=== PATIENT | female | born 1950 | race Caucasian/White ===

== ENCOUNTER 2022-10-04 01:25 | Day surgery (SDC) | payer MEDICARE, SELFPAY ==
--- NOTE | 2022-09-30 14:34 | PC.NURSE ---
Report to the Outpatient Waiting Room, entrance under the green pavilion located off [facility], at time _1330 on date _10/04/22 . Planned Procedure Time: __1530 . Time changes happen often and if your time is changed the preop area will call you the afternoon before. - You and your visitor will be asked to self-screen and do not enter if you have any COVID symptoms. - Only one visitor is requested with a max of two and NO children visitors are allowed at this time. - The patient visitor may be requested to leave or wait in car when not with patient due to distancing restrictions. - A mask is optional within the hospital. Patients may have clear liquids (water, carbonated beverages, clear teas, apple juice) until 3 hours prior to surgery with a maximum of 20 ounces. - No food from midnight until time of surgery - Infants may have breast milk until 4 hours before surgery, infant formula 6 hours prior to surgery. - Children will be allowed to drink immediately following surgery. If applicable, please bring a bottle or sippy cup to assist with drinking. Juice, water, soda, and popsicles are readily available. For infants on formula, please bring formula the day of surgery. Pacifiers are allowed. Take the following medications with a SIP of water the morning of surgery: __LYRICA,CYMBALTA,WELLBUTRIN,HYDROCODONE IF NEEDED Medications to discontinue per physician Date to take last dose Please no make-up, nail pakistani, hairspray, perfume, deodorant, or body powder the day of surgery. No jewelry (including any body piercings) or valuables the day of surgery, leave them at home. Please take a shower or bath the night before, or the morning of, surgery with an antibacterial soap. Wear comfortable, loose fitting clothing. Children are encouraged to wear pajamas. - Jewelry must be removed prior to entering the operating room. Rings and piercings that are not removed may be cut off. - The hospital will not accept responsibility for valuables. - Please leave all valuables, including medications, at home the day of surgery. If you are going home after surgery, a licensed taxi cab driver must drive you home. - NO public transportation without another adult if you receive anesthesia. - We recommend that an adult stay with you for 24 hours following discharge. - We also recommend that you do not drive, make important decision, drink alcoholic beverages, or take any drugs that were not prescribed by your health care provider for at least 24 hours after your discharge time. Follow any additional instructions given to you from your surgeon. If you or anyone in your household have experienced Covid symptoms in the past week, please notify your surgeon or the nurse liaison at the phone number below for possible testing. Telephone instructions given to ___PATIENT and asked if any additional questions and then verbalized understanding. Patient advised to call surgeon office or pre surgery nurse liaison [phone] if any additional questions.
[2022-09-30 14:45] VITALS: BMI 29.0
--- NOTE | 2022-10-04 09:36 | WPDHPUPDATE1 ---
History and Physical Update Update Date/Time: 10/04/22 09:36 History and Physical has been reviewed, including an updated exam of the patient. There are NO changes in the patient's condition. Risks, benefits, and alternatives have been discussed and questions answered. Patient agrees to proceed with procedure.
--- NOTE | 2022-10-04 09:36 | PM.HPGS ---
History of Present Illness History of Present Illness Consent: Risks, benefits, and alternatives have been discussed and questions answered. Patient agrees to proceed with procedure. Chief complaint: post menopausal bleeding Narrative: Shayy Stearns is a 72 year old female who underwent menopause in 1999. The patient had recently moved to the area from [facility] and was a new patient to me in August of 2022. The patient reports having irregular bleeding for the past several years. Most recently the patient had 4 days of bleeding in June that are heavy, 2 days of bleeding in early July and 2 days of bleeding in late July. It was recommended to proceed with D&C hysteroscopy. Risks of infection, bleeding, perforation, and possible pathology are reviewed. Patient voiced understanding and agrees to proceed. Review of Systems Review of Systems: not repeated day of surgery; patient states no changes in status PMFSH Past Medical History Medical History (Updated 10/04/22 @ 09:41 by Tawana Méndez MD) Anxiety Depression History of migraine HTN (hypertension) Overactive bladder Sacral nerve stimulator present Surgical History Surgical History (Updated 10/04/22 @ 09:39 by Tawana Méndez MD) H/O neck surgery History of appendectomy Hx laparoscopic cholecystectomy Previous back surgery Social History Social History Smoking status: Never smoker Living arrangements: alone Spiritual care concerns: No Meds Home Medications and Allergies Home Medications Medication Instructions Recorded Confirmed Type bupropion HCl 100 mg tablet 100 mg PO QAM PAIN 09/30/22 09/30/22 History duloxetine 60 mg capsule,delayed 60 mg PO QNOON PAIN 09/30/22 09/30/22 History release (Cymbalta) hydrocodone 7.5 mg-acetaminophen 1 tablet PO Q6H PRN Pain 09/30/22 09/30/22 History 325 mg tablet lisinopril 20 mg tablet 20 mg PO DAILY 09/30/22 09/30/22 History oxybutynin chloride 10 mg 10 mg PO DAILY 09/30/22 09/30/22 History tablet,extended release 24 hr pregabalin 100 mg capsule (Lyrica) 100 mg PO TID 09/30/22 09/30/22 History sumatriptan succinate 100 mg 100 mg PO PRN PRN Migraine Headache 09/30/22 09/30/22 History tablet (Imitrex) Allergies Allergy/AdvReac Type Severity Reaction Status Date / Time sulfamethoxazole Allergy Hives Verified 09/30/22 14:23 trimethoprim Allergy Hives Verified 09/30/22 14:23 DARVOCET Allergy Nausea and Uncoded 09/30/22 14:23 Vomiting Exam Const: General: alert and obese ( BMI of 31) Orientation/consciousness: patient oriented x3 Resp: Effort & Inspection: normal respiratory effort Auscultation: clear to auscultation bilaterally Cardio: Rate: regular rate Rhythm: regular rhythm GI: GI Palp: Yes Soft to palpation, No Tenderness to palpation present (GI) and No Palpable mass present : External Female Exam: normal external appearance Speculum Exam - Vagina: normal appearance of the vagina and normal vaginal discharge Speculum Exam - Cervix: normal appearance of the cervix Bimanual exam- vagina & uterus: uterine size normal and consistency normal Bimanual Exam- Adnexa, other: normal adnexae and No adnexal tenderness Neuro: General: patient oriented x3 Assessment and Plan Assessment and plan (1) Abnormal uterine bleeding: Code(s): N93.9 - Abnormal uterine and vaginal bleeding, unspecified Status: Acute Assessment and Plan: patient with postmenopausal bleeding plan to proceed with D&C hysteroscopy
[2022-10-04] MEDS: ACETAMINOPHEN 500 MG TABLET 1000 MG PO (11:09)
[2022-10-04] MEDS: LACTATED RINGERS 1,000 ML 30 ML IV CONT (11:09)
--- NOTE | 2022-10-04 11:15 | P.PNAN_ITS ---
Anes - Initial Pre Proc Eval Procedure: Operation Date: 10/04/22 15:30 Proposed Procedures p Hysteroscopy, Dilation and Curettage - Tawana Méndez MD Date/Time: 10/04/22 11:15 Surgeon: Tawana Méndez MD Pre Op Diagnosis: post menopausal bleeding Patient Data Age: 72 Gender: F Height: 1.68 m Weight: 85.8 kg Allergies Allergy/AdvReac Type Severity Reaction Status Date / Time sulfamethoxazole Allergy Hives Verified 09/30/22 14:23 trimethoprim Allergy Hives Verified 09/30/22 14:23 acetaminophen AdvReac Nausea and Verified 10/04/22 10:10 [From Darvocet-N 100] Vomiting propoxyphene AdvReac Nausea and Verified 10/04/22 10:10 [From Darvocet-N 100] Vomiting Home Medications Medication Instructions Recorded Confirmed Type bupropion HCl 100 mg tablet 100 mg PO QAM PAIN 09/30/22 09/30/22 History duloxetine 60 mg capsule,delayed 60 mg PO QNOON PAIN 09/30/22 09/30/22 History release (Cymbalta) hydrocodone 7.5 mg-acetaminophen 1 tablet PO Q6H PRN Pain 09/30/22 09/30/22 History 325 mg tablet lisinopril 20 mg tablet 20 mg PO DAILY 09/30/22 09/30/22 History oxybutynin chloride 10 mg 10 mg PO DAILY 09/30/22 09/30/22 History tablet,extended release 24 hr pregabalin 100 mg capsule (Lyrica) 100 mg PO TID 09/30/22 09/30/22 History sumatriptan succinate 100 mg 100 mg PO PRN PRN Migraine Headache 09/30/22 09/30/22 History tablet (Imitrex) Patient hx anesthesia problems: none Family hx anesthesia problems: none Results Review: All pre-operative results and documents have been reviewed as part of the pre-operative evaluation. [facility] Past Medical History Medical History Anxiety Depression History of migraine HTN (hypertension) Overactive bladder Sacral nerve stimulator present Surgical History Surgical History H/O neck surgery History of appendectomy Hx laparoscopic cholecystectomy Previous back surgery Social History Social History Smoking status: Never smoker Living arrangements: alone Spiritual care concerns: No Anes - Eval Final PreProcedure Day of Procedure 10/04/22 11:15 Patient weight: obese Heart: regular rate and rhythm Lungs: clear to auscultation Airway: Mallampati scale class II Neurological: alert and oriented Last oral intake: >/= 8 hours ASA classification: III Emergent: no Anesthetic plan: proceed Anesthesia type and monitoring: general GIVS and standard monitoring Results Review: All pre-operative results and documents have been reviewed as part of the pre- operative evaluation. Informed Consent: The patient's anesthetic plan and its attendant risks and benefits were discussed with the patient/family/POA. Questions were solicited and answers provided to the satisfaction of the patient/family/POA.
[2022-10-04] MEDS: LIDOCAINE HCL 1% PF 30 ML VIAL 10 ML INFILTRATE (11:41)
--- NOTE | 2022-10-04 11:53 | P.OP_ITS ---
Procedure Note - Detailed Date of Procedure 10/04/22 Pre-op Diagnosis Abnormal uterine bleeding post menopausal bleeding Post-op Diagnosis Same Procedure Performed D&C hysteroscopy Surgeon Tawana Méndez MD Anesthesia MAC and Local Findings the uterus sounds to 8cm; the cavity was filled with large irregular tissue Description of Procedure The patient is taken to the operating room and placed under anesthesia in the dorsal lithotomy position. She was prepped and draped in the usual sterile fashion. [place] speculum was placed in the vagina and the cervix grasped on the anterior lip with a tenaculum. The cervix is injected in each quadrant with 1% lidocaine. The uterus is sounded to 8cm and noted to be retroverted. The Aveta hysteroscope was placed with the above-stated findings. The intermediate blade is placed through the hysteroscope and under direct visualization the irregular tissue is all excised. The hysteroscope was removed and the sharp curette used to curette the endometrium until a good uterine cry was noted in all areas. All instruments are removed. Sponge, needle, and instrument counts are correct per the OR staff. The patient was awakened from anesthesia and taken to recovery in stable condition. Estimated Blood Loss 5 Drains No Packing No Pathology Yes ( Endometrial shavings and curettings) Complications No immediate complications Condition Stable Disposition PACU
[2022-10-04 11:54] VITALS: BP 107/67; PULSE 71; RESP 19; O2SAT 91
[2022-10-04 12:25] VITALS: BP 111/67; PULSE 63; RESP 16; O2SAT 97
[2022-10-04 12:55] VITALS: BP 122/72; PULSE 61; RESP 18
== END 2022-10-04 13:00 | disposition home or self-care (01) ==
PROVIDERS: Visit Provider Obstetrics & Gynecology Gynecology
PROC: 0U5B8ZZ Destruction of Endometrium, Via Natural or Artificial Opening Endoscopic (ICD-10-PCS; CPT 58563; principal; 2022-10-04 15:30)
DX: N95.0 Postmenopausal bleeding (principal); I10 Essential (primary) hypertension; N32.81 Overactive bladder; F41.9 Anxiety disorder, unspecified; F32.A Depression, unspecified; E66.9 Obesity, unspecified; Z68.30 Body mass index [BMI] 30.0-30.9, adult
CPT/HCPCS: 58558; 88305; A9270; J2704; J3010; J7120

== ENCOUNTER 2022-11-30 12:55 | Outpatient (CLI) | payer MEDICARE, SELFPAY | END 2022-11-30 12:56 | disposition home or self-care (01) | LOC: ANHAUDIO 12:56 | PROVIDERS: PCP Family Medicine; Visit Provider Physician Assistant | DX: H90.3 Sensorineural hearing loss, bilateral (principal) | CPT/HCPCS: 92557; 92567 ==

== ENCOUNTER 2022-12-01 08:15 | Outpatient (CLI) | payer MEDICARE, SELFPAY ==
[2022-12-01 09:03] LABS: Hemoglobin A1C 5.8 % (<5.7)
[2022-12-01 09:04] LABS: Alanine Aminotransferase 22 U/L (6-35); Albumin Level 4.3 g/dL (3.5-5.1); Alkaline Phosphatase 73 U/L (38-126); Anion Gap 6 mmol/L (8-16); Aspartate Amino Transferase 28 U/L (14-36); Bilirubin,Total 0.5 mg/dL (0.2-1.3); Blood Urea Nitrogen 10 mg/dL (7-17); Calcium 9.4 mg/dL (8.4-10.2); Carbon Dioxide 27 mmol/L (22-30); Chloride 105 mmol/L (98-107); Estimated Glomerular Filt Rate > 60; Glucose 97 mg/dL (65-110); Potassium 4.8 mmol/L (3.4-5.0); Sodium 138 mmol/L (137-145)
[2022-12-03 10:34] LABS: Cholesterol 171 mg/dL (0-200); HDL Direct 53 mg/dL; Triglycerides 143 mg/dL (<150)
[2022-12-03 10:45] LABS: LDL Cholesterol Direct 83 mg/dL
== END 2022-12-01 08:16 | disposition home or self-care (01) ==
PROVIDERS: PCP Family Medicine; Visit Provider Physician Assistant
DX: Z00.00 Encounter for general adult medical examination without abnormal findings (principal); Z13.1 Encounter for screening for diabetes mellitus; R73.09 Other abnormal glucose; E78.5 Hyperlipidemia, unspecified
CPT/HCPCS: 36415; 80053; 80061; 83036

== ENCOUNTER → 2023-02-17 11:47 | Outpatient (CLI) | payer MEDICARE, SELFPAY ==
--- NOTE | ~2023-02-17 | XR_ITS ---
Thoracic spine: Clinical Indication: Pain AP and lateral views were performed. No fracture is seen. There is normal alignment of the vertebrae. The intervertebral disc spaces appe ar normal. Spinal cord stimulators present, with 2 leads at the mid thoracic spine, and a third lead extending to the cervical spine. Paravertebral soft tissues appear normal. Impression: Spinal cord stimulator leads of the thoracic and cervical spine levels, as noted above. Reviewed, dictated and finalized at location M. Impression: Spinal cord stimulator leads of the thoracic and cervical spine levels, as note d above.
--- NOTE | ~2023-02-17 | XR_ITS ---
Lumbosacral Spine: AP and lateral views Clinical History: Pain, spinal cord stimulator leads Findings: There is 22 degrees levoscoliosis of the lumbar spine. There is moderate facet arthropathy throughout the lumbar spine. There are minimal degenerative disc changes. No fracture or subluxation evident. Spinal cord stimulator device present, please extending superiorly beyond the [id number]. Impression: 22 degrees levoscoliosis with mild degenerative changes otherwise. Spinal cord stimulators, with leads extending off the superior edge of the image. Reviewed, dictated and finalized at location M. Impression: 22 degrees levoscoliosis with mild degenerative changes otherwise. Spinal cord stimulators, with leads extending off the superior edge of the imag e.
== END ==
PROVIDERS: PCP Family Medicine
DX: M51.36 Other intervertebral disc degeneration, lumbar region (principal); M51.34 Other intervertebral disc degeneration, thoracic region; M41.9 Scoliosis, unspecified
CPT/HCPCS: 72070; 72100

== ENCOUNTER → 2023-03-24 11:44 | Outpatient (CLI) | payer MEDICARE, SELFPAY ==
--- NOTE | ~2023-03-24 | MM_ITS ---
EXAMINATION: MM screening carole BI w corwin HISTORY: Screening mammogram TECHNIQUE: Craniocaudal and mediolateral oblique 3-D tomosynthesis images were obtained and synthetic 2-D images were generated. CAD analysis was submitted and interpreted. COMPARISON: No prior mammogram is available for comparison at this institution. BREAST PARENCHYMAL COMPOSITION: There are scattered areas of fibroglandular density. FINDINGS: Scattered bilateral benign calcifications. There is no evidence of suspicious mass, calcifi cation, or architectural distortion to suggest malignancy in either breast. There has been no suspici ous interval change. IMPRESSION: 1. No mammographic evidence of malignancy. 2. Recommend routine screening mammography in one year. BI-RADS Category 2: Benign finding(s). Reviewed, dictated and finalized at location A.
== END ==
PROVIDERS: PCP Family Medicine; Visit Provider Obstetrics & Gynecology Gynecology
DX: Z12.31 Encounter for screening mammogram for malignant neoplasm of breast (principal)
CPT/HCPCS: 77063; 77067

== ENCOUNTER → 2023-04-08 10:25 | Outpatient (CLI) | payer MEDICARE, SELFPAY ==
--- NOTE | ~2023-04-08 | DEXA_ITS ---
Bone Density Report Name: KECIA YOUNG Age: 72 Sex: Female Ethnicity: White Date of : 1950 Indication: postmenopausal; screening for osteoporosis; prior fracture; Referring Provider: LILIA PALOMINO Study: Bone densitometry was performed. Exam Date: April 08, 2023 Accession number: [id number] Bone Density: Region BMD T-score Z-score Classification AP Spine (L1, L3, L4) 1.114 0.6 2.7 Normal Femoral Neck (Left) 0.663 -1.7 0.2 Osteopenia Total Hip (Left) 0.868 -0.6 0.9 Normal Femoral Neck (Right) 0.676 -1.6 0.3 Osteopenia Total Hip (Right) 0.911 -0.3 1.3 Normal Total Hip Mean 0.890 -0.5 1.1 Normal World Health Organization criteria for BMD impression classify patients as: Normal (T-score at or above -1.0), Osteopenia (T-score between -1.0 and -2.5), or Osteoporosis (T-score at or below -2.5). 10-year Fracture Risk(1): Major Osteoporotic Fracture 16% Hip Fracture 2.4% Reported Risk Factors: [place] (), Neck BMD=0.663, BMI=30.1, previous fracture (1) FRAX(R) Version 3.08. Fracture probability calculated for an untreated patient. Fracture probability may be lower if the patient has received treatment. Clinical Information Provided by Patient: Has had a low trauma fracture Patient maximum height was 66 Menopause Age: 52 No regular weight bearing exercise Drinks caffeinated beverages Onset of menses at age 16 Number of children 0 Impression: The patient has low bone mass, based on the Left Femoral Neck T-score. The patient has an estimated ten-year risk of hip fracture of 2.4% and an estimated ten-year risk of major fracture of 16%, based on the WHO FRAX algorithm. The patient has risk factors, including: previous fracture. Discussion: BONE DENSITY IS LOW AT ONE OR MORE SKELETAL SITES. This patient's lowest T-score is low at one or more skeletal sites. It meets the World Health Organization's (WHO) criteria for ?low bone mass? (T-score between -1.0 and -2.5). The patient's 10-year risk of fracture as calculated by FRAX is less than the threshold where pharmacological therapy is recommended by the National Osteoporosis Foundation (NOF). However, all treatment decisions require clinical judgment and consideration of individual patient factors, including patient preferences, comorbidities, previous drug use, risk factors not captured in the FRAX model (e.g., frailty, falls, vitamin D deficiency, increased bone turnover, interval significant decline in bone density) and possible under or overestimation of fracture risk by FRAX. The patient should follow a healthful lifestyle (good nutrition with adequate calcium and vitamin D, and appropriate weight-bearing exercise). Follow-Up: Consider repeating this study in 2 to 3 years to reassess this patient's status, or sooner if ther
== END ==
PROVIDERS: PCP Obstetrics & Gynecology Gynecology; Visit Provider Obstetrics & Gynecology Gynecology
DX: Z78.0 Asymptomatic menopausal state (principal); M85.852 Other specified disorders of bone density and structure, left thigh; M85.851 Other specified disorders of bone density and structure, right thigh
CPT/HCPCS: 77080

== ENCOUNTER 2023-12-19 07:59 | Outpatient (CLI) | payer MEDICARE, SELFPAY | END 2023-12-19 08:00 | disposition home or self-care (01) | LOC: ANHAUDASC 07:59 | PROVIDERS: PCP Family Medicine; Visit Provider Physician Assistant | DX: H90.3 Sensorineural hearing loss, bilateral (principal) | CPT/HCPCS: 92557; 92567 ==

== ENCOUNTER 2024-01-06 12:52 | Outpatient (RCR) | payer MEDICARE, SELFPAY | END 2024-04-05 23:59 | disposition home or self-care (01) | LOC: ANHAUDASC 12:52 | PROVIDERS: PCP Family Medicine; Visit Provider Family Medicine | DX: Z46.1 Encounter for fitting and adjustment of hearing aid (principal) | CPT/HCPCS: V5261 ==

== ENCOUNTER 2024-01-12 06:23 | Day surgery (SDC) | payer MEDICARE, SELFPAY ==
[2023-12-16 14:11] VITALS: BMI 29.8
[2023-12-30 10:18] VITALS: BMI 28.3
--- NOTE | 2024-01-12 07:49 | WPDANESEPPF ---
Anes - Initial Pre Proc Eval Procedure: Operation Date: 01/12/24 09:00 Proposed Procedures p Screening Colonoscopy - Bhupinder Smith MD Date/Time: 01/12/24 07:49 Surgeon: Bhupinder Smith MD Pre Op Diagnosis: Neoplasm Screening Patient Data Age: 73 Gender: F Height: 1.68 m Weight: 79.5 kg Allergies Allergy/AdvReac Type Severity Reaction Status Date / Time sulfamethoxazole Allergy Hives Verified 01/12/24 07:53 trimethoprim Allergy Hives Verified 01/12/24 07:53 propoxyphene AdvReac Nausea and Verified 01/12/24 07:53 [From Darvocet-N 100] Vomiting Home Medications Medication Instructions Recorded Confirmed Type hydrocodone 7.5 mg-acetaminophen 1 tablet PO Q6H PRN Pain 09/30/22 01/12/24 History 325 mg tablet pregabalin 100 mg capsule (Lyrica) 100 mg PO TID 09/30/22 01/12/24 History cyclosporine 0.05 % eye drops 1 drp EACH EYE Q12H 11/24/22 01/12/24 History progesterone micronized 100 mg 100 mg PO QAM 11/24/22 01/12/24 History capsule sumatriptan succinate 100 mg 100 mg PO .COMPLEX PRN Migraine 06/02/23 01/12/24 Rx tablet (Imitrex) Headache #9 tabs duloxetine 60 mg capsule,delayed 60 mg PO DAILY #90 caps 09/12/23 01/12/24 Rx release (Cymbalta) lisinopril 20 mg tablet 20 mg PO DAILY #90 tabs 09/12/23 01/12/24 Rx tirzepatide (weight loss) 5 mg/0.5 5 mg (0.5 mL) subcut WEEKLY #2 mL 12/16/23 01/12/24 Rx mL subcutaneous pen injector (Zepbound) oxybutynin chloride 10 mg 10 mg PO DAILY #90 tabs 01/09/24 01/12/24 Rx tablet,extended release 24 hr bupropion HCl 100 mg tablet 100 mg PO QAM #90 tabs 01/11/24 01/12/24 Rx Patient hx anesthesia problems: post op nausea/vomiting Family hx anesthesia problems: none Results Review: All pre-operative results and documents have been reviewed as part of the pre-operative evaluation. [facility] Past Medical History Medical History Anxiety Depression History of migraine HTN (hypertension) Overactive bladder Sacral nerve stimulator present Dr Park (2019) Surgical History Surgical History H/O knee surgery (~1973) Left H/O neck surgery (~1999) Cervical fusion, has neurostimulator History of appendectomy (~2020) Hx laparoscopic cholecystectomy (~2021) Previous back surgery (~1993) L5-S1 laminectomy, has neurostimulator Family History Family History Father Hypertension Cerebrovascular accident Mother Breast cancer Sibling Melanoma Alcoholism Hypertension Depression Heart disease Social History Social History Social History: Single, lives alone. Does have living well. Retired. Smoking status: Never smoker Alcohol intake: never Substance use: never Substance use type: does not use Lack of Transportation: No Lack of Food: Never True Current Housing: I Do Not Have Housing Concerned About Future Housing: No Difficulty Paying Gas/Electric Bills: No Difficulty Paying for Meds: No Currently Unemployed: No Education: Decline to Answer Difficulty w/ Childcare or Family Care: No Living arrangements: alone Occupation/Education: retired Gender identity (if verbalized by the patient): Female Spiritual care concerns: No Anes - Eval Final PreProcedure Day of Procedure 01/12/24 07:49 Patient weight: overweight Heart: regular rate and rhythm Lungs: clear to auscultation Airway: Mallampati scale class II Neurological: alert and oriented Last oral intake: >/= 8 hours ASA classification: III Emergent: no Anesthetic plan: proceed Anesthesia type and monitoring: general GIVS and standard monitoring Results Review: All pre-operative results and documents have been reviewed as part of the pre-operative evaluation. Informed Consent: The patient's anesthetic marianne
[2024-01-12 07:57] VITALS: BMI 27.8
[2024-01-12 08:01] VITALS: BP 128/78; PULSE 90; RESP 18; TEMP 37.2; O2SAT 97
[2024-01-12] MEDS: LACTATED RINGERS 1,000 ML 150 ML IV CONT (08:16)
--- NOTE | 2024-01-12 08:18 | PM.HPGS ---
History of Present Illness History of Present Illness Consent: Risks, benefits, and alternatives have been discussed and questions answered. Patient agrees to proceed with procedure. Chief complaint: Neoplasm Screening Narrative: Shayy Stearns is a 73 year old female referred for colonoscopy by Dr. King. Patient reports right lower quadrant abdominal pain for the last 1 year. She describes this as being tender. She has no alteration in her bowel habits. She does have a history of colon polyps many years ago performed in [facility]. These meds are not available for review. Reports she had a ruptured appendix 1 year ago and had exploratory abdominal surgery. His many scars on her abdomen. Family history is noncontributory. She does have chronic pain and takes hydrocortisone for pain control. This is tendency towards constipation because of this. Patient referred today for screening colonoscopy. Review of Systems Review of Systems: Review of systems is noncontributory. [facility] Past Medical History Medical History Anxiety Depression History of migraine HTN (hypertension) Overactive bladder Sacral nerve stimulator present Dr Park (2019) Surgical History Surgical History H/O knee surgery (~1973) Left H/O neck surgery (~1999) Cervical fusion, has neurostimulator History of appendectomy (~2020) Hx laparoscopic cholecystectomy (~2021) Previous back surgery (~1993) L5-S1 laminectomy, has neurostimulator Family History Family History Father Hypertension Cerebrovascular accident Mother Breast cancer Sibling Melanoma Alcoholism Hypertension Depression Heart disease Social History Social History Social History: Single, lives alone. Does have living well. Retired. Smoking status: Never smoker Alcohol intake: never Substance use: never Substance use type: does not use Lack of Transportation: No Lack of Food: Never True Current Housing: I Do Not Have Housing Concerned About Future Housing: No Difficulty Paying Gas/Electric Bills: No Difficulty Paying for Meds: No Currently Unemployed: No Education: Decline to Answer Difficulty w/ Childcare or Family Care: No Living arrangements: alone Occupation/Education: retired Gender identity (if verbalized by the patient): Female Spiritual care concerns: No Meds Home Medications and Allergies Home Medications Medication Instructions Recorded Confirmed Type hydrocodone 7.5 mg-acetaminophen 1 tablet PO Q6H PRN Pain 09/30/22 01/12/24 History 325 mg tablet pregabalin 100 mg capsule (Lyrica) 100 mg PO TID 09/30/22 01/12/24 History cyclosporine 0.05 % eye drops 1 drp EACH EYE Q12H 11/24/22 01/12/24 History progesterone micronized 100 mg 100 mg PO QAM 11/24/22 01/12/24 History capsule sumatriptan succinate 100 mg 100 mg PO .COMPLEX PRN Migraine 06/02/23 01/12/24 Rx tablet (Imitrex) Headache #9 tabs duloxetine 60 mg capsule,delayed 60 mg PO DAILY #90 caps 09/12/23 01/12/24 Rx release (Cymbalta) lisinopril 20 mg tablet 20 mg PO DAILY #90 tabs 09/12/23 01/12/24 Rx tirzepatide (weight loss) 5 mg/0.5 5 mg (0.5 mL) subcut WEEKLY #2 mL 12/16/23 01/12/24 Rx mL subcutaneous pen injector (Zepbound) oxybutynin chloride 10 mg 10 mg PO DAILY #90 tabs 01/09/24 01/12/24 Rx tablet,extended release 24 hr bupropion HCl 100 mg tablet 100 mg PO QAM #90 tabs 01/11/24 01/12/24 Rx Allergies Allergy/AdvReac Type Severity Reaction Status Date / Time sulfamethoxazole Allergy Hives Verified 01/12/24 07:53 trimethoprim Allergy Hives Verified 01/12/24 07:53 propoxyphene AdvReac Nausea and Verified 01/12/24 07:53 [From Darvocet-N 100] Vomiting Vital Signs Vital Signs - 24 hr
[2024-01-12 09:34] VITALS: BP 92/69; PULSE 79; RESP 14; O2SAT 100
--- NOTE | 2024-01-12 09:38 | WPDANESPN ---
Anes - Prog Note Post-Op Date/Time: 01/12/24 09:38 Cardiovascular status: normal Respiratory status: normal Airway patency: baseline Mental status: baseline Post-Op hydration status: normal Vital Signs: Last Vital Signs Temp 37.2 C 01/12/24 08:01 Pulse 90 01/12/24 08:01 Resp 18 01/12/24 08:01 BP 128/78 01/12/24 08:01 Pulse Ox 97 01/12/24 08:01 O2 Del Method Room Air 01/12/24 08:01 Pain Score (VAS): 0 I/O: Intake & Output 01/11/24 01/12/24 01/12/24 23:59 07:59 15:59 Intake Total 500 Balance 500 Patient Feedback: Patient satisfied with anesthetic care.
[2024-01-12 09:44] VITALS: BP 104/54; PULSE 78; RESP 16; O2SAT 100
[2024-01-12 09:54] VITALS: BP 99/62; PULSE 83; RESP 20; O2SAT 100
== END 2024-01-12 10:03 | disposition home or self-care (01) ==
PROVIDERS: PCP Family Medicine; Visit Provider Internal Medicine Gastroenterology
PROC: 0DJD8ZZ Inspection of Lower Intestinal Tract, Via Natural or Artificial Opening Endoscopic (ICD-10-PCS; CPT 45378; principal; 2024-01-12 09:00)
DX: R10.31 Right lower quadrant pain (principal); Z12.11 Encounter for screening for malignant neoplasm of colon; K64.8 Other hemorrhoids
CPT/HCPCS: 45378

== ENCOUNTER 2024-06-12 10:31 | Outpatient (CLI) | payer MEDICARE, SELFPAY ==
[2024-06-12 11:05] LABS: Hematocrit 41.3 % (37.0-47.0); Hemoglobin 13.7 g/dL (12.0-15.0); Mean Corpuscular HGB Conc 33.2 g/dl (32-36); Mean Corpuscular Hemoglobin 31.8 pg (26-34); Mean Corpuscular Volume 95.8 fl (80-100); Mean Platelet Volume 9.2 fl (7.4-10.4); Platelet Count Result 288 k/mm3 (150-375); Red Blood Count 4.31 M/mm3 (4.2-5.4); Red Cell Distribution Width 13.3 % (11.5-14.5); White Blood Count 9.2 K/mm3 (4.5-10.0)
[2024-06-12 11:18] LABS: Alanine Aminotransferase 13 U/L (6-35); Albumin Level 4.4 g/dL (3.5-5.1); Alkaline Phosphatase 49 U/L (38-126); Anion Gap 9 mmol/L (4-12); Aspartate Amino Transferase 21 U/L (14-36); Bilirubin,Total 0.7 mg/dL (0.2-1.3); Blood Urea Nitrogen 9 mg/dL (7-17); Calcium 9.9 mg/dL (8.4-10.2); Carbon Dioxide 26 mmol/L (22-30); Chloride 101 mmol/L (98-107); Cholesterol 176 mg/dL (0-200); Estimated Glomerular Filt Rate > 60; Glucose 77 mg/dL (65-110); HDL Direct 72 mg/dL; Potassium 3.8 mmol/L (3.4-5.0); Sodium 136 mmol/L (137-145); Triglycerides 102 mg/dL (<150)
[2024-06-12 11:30] LABS: LDL Cholesterol Direct 74 mg/dL
[2024-06-12 11:41] LABS: Hemoglobin A1C 5.4 % (<5.7)
[2024-06-12 11:46] LABS: Creatinine Urine 41.4 mg/dL
[2024-06-12 11:53] LABS: MALB Creatinine Ratio 22.9 mg/g (0-30); Microalbumin Urine Random 9.5 mg/L (0-16.7)
== END 2024-06-12 10:32 | disposition home or self-care (01) ==
LOC: ANHLAB 10:36
PROVIDERS: PCP Family Medicine; Visit Provider Family Medicine
DX: R53.83 Other fatigue (principal); E11.9 Type 2 diabetes mellitus without complications; D64.9 Anemia, unspecified; Z13.220 Encounter for screening for lipoid disorders; Z13.1 Encounter for screening for diabetes mellitus
CPT/HCPCS: 36415; 80053; 80061; 82043; 83036; 84443; 85027

== ENCOUNTER 2025-04-30 12:43 | Outpatient (CLI) | payer MEDICARE, SELFPAY ==
--- NOTE | ~2025-04-30 | DEXA_ITS ---
Bone Density Report Name: KECIA YOUNG Age: 74 Sex: Female Ethnicity: White Date of : 1950 Indication: postmenopausal; screening for osteoporosis; Referring Provider: LILIA PALOMINO Study: Bone densitometry was performed. Exam Date: April 30, 2025 Accession number: [id number] Bone Density: Region BMD T-score Z-score Classification AP Spine(L1, L3, L4) 1.015 -0.3 1.9 Normal Femoral Neck (Left) 0.678 -1.5 0.4 Osteopenia Total Hip (Left) 0.787 -1.3 0.4 Osteopenia Femoral Neck (Right) 0.677 -1.6 0.4 Osteopenia Total Hip (Right) 0.794 -1.2 0.4 Osteopenia Total Hip Mean 0.790 -1.3 0.4 Osteopenia World Health Organization criteria for BMD impression classify patients as: Normal (T-score at or above -1.0), Osteopenia (T-score between -1.0 and -2.5), or Osteoporosis (T-score at or below -2.5). 10-year Fracture Risk(1): Major Osteoporotic Fracture 11% Hip Fracture 1.9% Reported Risk Factors: [place] (), Neck BMD=0.678, BMI=24.9 (1) FRAX(R) Version 3.08. Fracture probability calculated for an untreated patient. Fracture probability may be lower if the patient has received treatment. Previous Exams: -- Region Exam Age BMD T-score BMD Change BMD Change Date g/cm2 vs Baseline vs Previous -- AP Spine (L1,L3-L4) 04/30/2025 74 1.015 -0.3 -8.9%* -8.9%* 04/08/2023 72 1.114 0.6 Total Hip(Left) 04/30/2025 74 0.787 -1.3 -9.3%* -9.3%* 04/08/2023 72 0.868 -0.6 Total Hip(Right) 04/30/2025 74 0.794 -1.2 -12.9%* -12.9%* 04/08/2023 72 0.911 -0.3 -- *Denotes significance at 95% confidence level, LSC for AP Spine = 0.022 g/cm2, LSC for Total Hip = 0.027 g/cm2 Clinical Information Provided by Patient: Patient maximum height was 66 Menopause Age: 52 Drinks caffeinated beverages Onset of menses at age 14 Number of children 0 Impression: The patient has low bone mass, based on the Right Femoral Neck T-score. The patient has an estimated ten-year risk of hip fracture of 1.9% and an estimated ten-year risk of major fracture of 11%, based on the WHO FRAX algorithm. The BMD for the AP Spine (L1,L3-L4) decreased, changing by -8.9% since the last DXA exam. The BMD for the Total Hip(Left) decreased, changing by -9.3% since the last DXA exam. The BMD for the Total Hip(Right) decreased, changing by -12.9% since the last DXA exam. Discussion: BONE DENSITY IS LOW AT ONE OR MORE SKELETAL SITES. This patient's lowest T-score is low at one or more skeletal sites. It meets the World Health Organization's (WHO) criteria for ?low bone mass? (T-score between -1.0 and -2.5). The patient's 10-year risk of fracture as calculated by FRAX is less than the threshold where pharmacological therapy is recommended by the National Osteoporosis Foundation (NOF). However, all treatment decisions require clinical judgment and consideration of individual patient factors, including patient preferences, comorbidities, previous drug use, risk factors not captured in the FRAX model (e.g., frailty, falls, vitamin D deficiency, increased bone turnover, interval significant decline in bone density) and possible under or overestimation of fracture risk by FRAX. The patient should follow a healthful lifestyle (good nutrition with adequate calcium and vitamin D, and appropriate weight-bearing exercise). Follow-Up: Consider repeating this study in 2 years to reassess this patient's status, or sooner if there is some new clinical indication. Reported by: TOOTIE on 04/30/2025 12:56:00 PM. Reviewed, dictated and finalized at location A.
== END 2025-04-30 12:44 | disposition home or self-care (01) ==
LOC: MICIMG 12:44
PROVIDERS: PCP Family Medicine; Visit Provider Obstetrics & Gynecology Gynecology
DX: Z78.0 Asymptomatic menopausal state (principal); M85.852 Other specified disorders of bone density and structure, left thigh; M85.851 Other specified disorders of bone density and structure, right thigh
CPT/HCPCS: 77080

== ENCOUNTER 2025-05-10 09:10 | Outpatient (CLI) | payer MEDICARE, SELFPAY ==
--- OUTSIDE RECORDS SUMMARY | 2025-05-10 09:15 | XMS_ITS | Clinical Summary ---
Author Organization [facility] Address [address] [place] [address] Phone Care Team Providers Care Mechanical Integrity Engineer Name Role Phone Cisco Gomez MD, Steven Dickens Unavailable Unav ailable Anahi Park MD Unavailable [phone] Provider, None Primary Care Provider Unavailabl e Allergies Active Allergy Reactions Criticality Noted Date Comments Bactrim Hives,Itching 08/14/2010 Propoxyphene N-Acetaminophen Vomiting 009 PER PT Sulfamethoxazole-Trimethoprim Hives High 2020 Medications * This document contains information received from the source organization and may not represent a complete record from that organization. fluticasone 50 MCG/ACT NA SUSP 2 Sprays by Nasal route daily. Use in each nostril as directed. 1 Inhaler 3 0 Active Additional Information Patient not taking.Reported on 06/18/2021 cycloSPORINE (RESTASIS) 0.05 % OP EMUL Place 1 Drop in affected eye(s) 2 times daily. Active HYDROcodone-acet aminophen (NORCO) 7.5-325 MG Tablet TK 1 T PO Q 8 H 0 6 Active naproxen (NAPROSYN) 500 MG TabletIndication s:Migraine without aura and without status migrainosus, not intractable Take 1 Tab by mouth daily as needed. Take 1 tablet along with Imitrex for migraines 30 Tab 6 7 Active pregabalin (LYRICA) 100 MG CapsuleIndicatio ns:DDD (degenerative disc disease), cervical Take 1 Capsule by mouth 2 times daily. Dx M50.30 180 Capsule 1 1 Active DULoxetine (CYMBALTA) [address] Particles TAKE 1 CAPSULE BY MOUTH DAILY 90 Capsule 3 1 Active buPROPion (WELLBUTRIN) 150 MG XL tablet TAKE 1 TABLET BY MOUTH EVERY MORNING 90 Tablet 3 2 Active oxybutynin (DITROPAN) 5 MG Tablet TAKE 1 TABLET BY MOUTH DAILY 90 Tablet 3 2 Active lisinopril (PRINIVIL, ZESTRIL) 10 MG TabletIndication s:Essential hypertension TAKE 1 TABLET BY MOUTH DAILY 90 Tablet 3 2 Active DULoxetine (CYMBALTA) [address] Particles TAKE 1 CAPSULE BY MOUTH DAILY 90 Capsule 3 2 Active SUMAtriptan (IMITREX) 100 MG TabletIndication s:Migraine without aura and without status migrainosus, not intractable TAKE DIRECTED, MAY REPEAT IN 2 HOURS IF HEADACHE RECURS 9 Tablet 3 3 Active Active Problems Problem Noted Date Diagnosed Date S/P insertion of spinal cord stimulator: 09/14 Romi Park 09/07/2020 Impingement syndrome of right shoulder: Sees Kleber golden 03/14/2020 High blood pressure 03/09/2019 Major depressive disorder wi th single episode, in partial remission 05/17/2017 Migraine without aura and wi thout status migrainosus, not intractable 05/17/2017 Opioid use disorder, mild,-P [facility] in controlled environment 05/17/2017 Hx of skin cancer, basal cell 04/09/2015 Family history of melanoma - sees dermatology Dr Sheldon Murphy 10/07/2014 Obstructive sleep apnea- miguel s not use a machine. just manages by postion and weight reduction. 06/21/2007 DDD (degenerative disc disea se), cervical- chronic neck pain- on Lyrica BID. She states does seem to keep her pain controlled. She states has seen pain specialist. S/p neck surgery. Sees Dr. Park. Resolved Problems Problem Noted Date Diagnosed Date Resolved Date Depression 07/10/2013 05/17/2017 Migraine- followed by Dr Peck 07/10/2013 05/17/2017 Fibromyalgia 07/10/2013 09/06/2013 Immunizations Immunization Administration Dates Next Due Covid-19, Mrna, Lnp-s, PF, 1 00 mcg/0.5 mL Dose (Moderna) 10/24/2020 Influenza Vaccine 09/04/2015 Influenza Vaccine greater than 3 yrs 06/16/2016 Influenza Vaccine, MDCK,quadrivalent, pres free 07/19/2017 Influenza Vaccine, Quadrivalent, PF 07/09/2019,1 Influenza, Injectable, Quadrivalent 07/03/2020 Influenza, Quadrivalent, Adjuvanted 08/13/2021 PUR FLU 3+ YRS PRES FREE QUAD IM 06/28/2014 PUR FLU PRES FREE AGE 3+ FULL IM 06/25/2013,08/27 PUR TDAP 7+ YRS IM 04/10/2013 PUR ZOSTAVAX 10/07/2014 Pneumococcal Vaccine - 13 Valent 07/04/2018 Pneumococcal Vaccine Adult - 23 Valent 9 Zoster Vaccine Recombinant 04/21/2020 Family History Medical History Relation Name Comments Hypertension Brother 1 Hypertension Brother 2 Heart Attack Father Breast Cancer Maternal Aunt Breast Cancer Mother Stroke Mother Age 95 Breast Cancer Other Hypertension Sister Relation Name Status Comments Brother 1 Alive htn Brother 2 (Age 40) melanoma,m igraine Father (Age 60) heart dise ase Maternal Aunt Mother (Age 95) cva Other Sister Alive afib,migraine Social History Tobacco Use Types Packs/Day Years Used Date Smoking Tobacco: Never Smokeless Tobacco: Never Tobacco Cessation:Counseling Given: No Alcohol Use Standard Drinks/Week Comments No 0 (1 standard drink = 0.6 oz pur e alcohol) PHQ-2 Answer Date Recorded Total Score - Questions 1-9 0 04/26 Education Answer Date Recorded What is the highest level of school you have completed or the highest degree you have received? Doctorate 11/15/2020 Sexually Active Control Partners Comments Not Currently Comments No Sex and Gender Information Value Date Recorded Sex Assigned at Not on file Legal Sex Female 2:57 AM ACQUISITION COST ESTIMATOR Gender Identity Not on file Sexual Orientation Not on file Occupation Industry Job Start Date Job End Date Not on file Not on file Not on file Not on file Last Filed Vital Signs Vital Sign Reading Time Taken Comments Blood Pressure 104/74 06/18/2021 7:03 PM CDT Pulse 98 06/18/2021 7:03 PM CDT Temperature 36.6 C (97.8 F) 06/18/2021 7:03 PM CDT Respiratory Rate 24 06/18/2021 7:03 PM CDT Oxygen Saturation 94% 06/18/2021 7:03 PM CDT Inhaled Oxygen Concentration - - Weight 80.3 kg (177 lb) 06/18/2021 7:03 PM CDT Height 167.6 cm (5' 6) 10/21/2021 10:02 AM ACQUISITION COST ESTIMATOR Body Mass Index 28.57 06/18/2021 7:03 PM CDT Plan of Treatment Health Maintenance Due Date Last Done Comments Hepatitis C Virus (HCV) Screening 1950 Cologuard 1997 DEXA Bone Density 02/28/2012 02/27/2010 Zoster Immunization (2 of 2) 06/16/2020 04/21/2020 Immunochemical Fecal Occult Blood 09/11/2022 09/11/2021, 03/25/2010 Mammogram 03/15/2023 03/15/2022, 12/26, 01/07/2020, Additional history exists Td Immunization Every 10 Years (Adults With 1 Tdap) 04/10/2023 04/10/2013 SARS-COV-2 Immunization ( season) 2025 07/16/2024, 07/04/2022, 02/13/2022, Additional history exists Influenza Immunization (#1) 05/27/202506/27, 07/26/2023, 07/01/2022, Additional history exists Colonoscopy 06/11/2025 06/11/2015, 05/27, 03/11/2008, Additional history exists Colorectal Cancer Screening 06/11/2025 Pneumococcal Immunization (50+ years) Completed 07/09/2019, 07/04/2018 Pneumococcal Immunization Combined Discontinued 07/09/2019, 07/04/2018 Respiratory Syncytial Virus (RSV) Immunization (Adult) Completed 07/26/2023 Hepatitis B Immunization Aged Out No longer eligible based on patient's age to complete this topic Human Papillomavirus (HPV) Immunization Aged Out No longer eligible based on patient's age to complete this topic Meningococcal Immunization (ACWY) Aged Out No longer eligible based on patient's age to complete this topic Rotavirus Immunization Aged Out No lo nger eligible based on patient's age to complete this topic Medical Devices Implanted Type Area Forcer Maker Device Identifier Shelf Expiration Date Model / Serial / Lot Proclaim Xr 5 Us Implanted:Qty: 1 on 06/05/2021 by Reece Moise MD IPG Left: Buttocks [id number] / / Description:[employer] is recall ing its Proclaim and Infinity IPGs due to complaints from patients who are unable to exit MRI mode. The use of the affected IPGs may require surgery to remove the device and replace it with a new device. Only use 1.5 T cylindrical bore magnet, horizontal field orientation MRI systems. Supine, patient's arms must be at his or her sides. 30 minutes total of active scan time per session 30 minute wait between sessions Normal operating mode Procedures Procedure Name Priority Date/Time Associated Diagnosis Comments [facility] SCREENING BILATERAL DIGITAL W CAD W JAGDEEP Routine 03/15/2022 11:12 AM CDT Screening mammogram, encounter for STOOL, OCCULT BLOOD, SCREEN 09/11/2021 12:00 AM ACQUISITION COST ESTIMATOR HM COLONOSCOPY Routine 06/11/2015 BRITNEY BONE DENSITOMETRY AXIAL SKELETON Routine 02/27/2010 8:16 AM CDT Menopause from Last 3 Months or Most Recently Relevant to Health Maintenance Results * [facility] SCREENING BILATERAL DIGITAL W CAD W JAGDEEP (03/15/2022 11:12 AM CDT) Anatomical Region Laterality Modality breast Bilateral Mammography 03/15/2022 11:1 2 AM CDT Impressions 03/15/2022 4:32 PM CDT IMPRESSION: BI-RADS 2 (Benign Findings). Follow-up screening mammogram recommended in 1 year. BI-RADS Assessment: BI-RADS 2 - Benign findings. Patient should return to normal screening interval. In the setting of palpable abnormality and negative or benign imaging, surgical consultation is recommended. BIRADS Category 1- Negative Mammogram; BI-RADS Category 2 - Benign Findings; BI- RADS Category 3 - Probably Benign Findings; BI-RADS Category 4 - Suspicious Abnormality; BI-RADS Category 5 - Highly Suggestive for Malignancy; BI-RADS category 6 - Known Malignancy; BI-RADS 0 Incomplete: Needs additional imaging evaluation Narrative 03/15/2022 4:32 PM CDT [facility] SCREENING BILATERAL DIGITAL W CAD W JAGDEEP 03/15/2022 11:12 AM History: Encounter for screening mammogram for malignant neoplasm of breast. Female 71 years old. Comparison Exams(s): 12/26/2018. Please note, that if comparisons are available the radiologist will review multiple prior exams and list the exam(s) most useful in evaluating the current study. TECHNIQUE: Standard CC and MLO views of the breasts submitted with CAD. CC and MLO tomosynthesis images also submitted and reviewed. FINDINGS: Breast composition: There are scattered areas of fibroglandular density. Right Breast: No malignant type calcifications, architectural distortion, or mass in the right breast. Left Breast: No malignant type calcifications, architectural distortion, or mass in the left breast. Other: Benign calcifications bilaterally. Procedure Note Eric Clifton MD - 03/15/2022 [facility] SCREENING BILATERAL DIGITAL W CAD W JAGDEEP 03/15/2022 11:12 AM History: Encounter for screening mammogram for malignant neoplasm ofbreast. Female 71 years old. Comparison Exams(s): 12/26/2018. Please note, that if comparisons areavailable the radiologist will review multiple prior exams and list theexam(s) most useful in evaluating the current study. TECHNIQUE: Standard CC and MLO views of the breasts submitted with CAD.CC and MLO tomosynthesis images also submitted and reviewed. FINDINGS: Breast composition: There are scattered areas of fibroglandular density. Right Breast: No malignant type calcifications, architectural distortion,or mass in the right breast. Left Breast: No malignant type calcifications, architectural distortion,or mass in the left breast. Other: Benign calcifications bilaterally. IMPRESSION: BI-RADS 2 (Benign Findings). Follow-up screening mammogramrecommended in 1 year. BI-RADS Assessment: BI-RADS 2 - Benign findings. Patient should return to normal screeninginterval. In the setting of palpable abnormality and negative or benignimaging, surgical consultation is recommended. BIRADS Category 1- Negative Mammogram; BI-RADS Category 2 - BenignFindings; BI- RADS Category 3 - Probably Benign Findings; BI-RADS Category4 - Suspicious Abnormality; BI-RADS Category 5 - Highly Suggestive forMalignancy; BI-RADS category 6 - Known Malignancy; BI-RADS 0 Incomplete:Needs additional imaging evaluation us Emily Shane BACK FEEDER PLYWOOD LAYUP LINE, LATIN TEACHER IMG MAMMO ORDERABLES Final Result * STOOL, OCCULT BLOOD, SCREEN FOR CA (09/11/2021 12:00 AM ACQUISITION COST ESTIMATOR) 09/11/2021 us Not On File Provider URINE ORDERABLES Final Resu lt SCAN * HM COLONOSCOPY (06/11/2015) us Shawn Gamble MD PROCEDURE/MINOR SURGICAL ORDERA BLES Final Result * BRITNEY BONE DENSITOMETRY AXIAL SKELETON (02/27/2010 8:16 AM CDT) Anatomical Region Laterality Modality BODY N/A Other 02/27/2010 8:16 AM CDT Impressions 03/02/2010 3:25 PM CDT IMPRESSION: Bone mineral density is normal. Narrative 03/02/2010 3:25 PM CDT menopause BONE DENSITOMETRY: HISTORY: Menopause. FINDINGS: Bone mineral density L1 to L4 is 1.145 grams per cm squared. T-score is -0.3. Z-score is 0.0. The bone mineral density of the left femoral neck is 1.021 grams per cm squared. T-score is 0.1. Z-score is 0.4. Bone mineral density right femoral neck is 1.059 grams per cm squared. T-score is 0.4. Z-score is 0.7. Procedure Note Eric Clifton MD - 03/02/2010 menopause BONE DENSITOMETRY: HISTORY: Menopause. FINDINGS: Bone mineral density L1 to L4 is 1.145 grams per cm squared. T-score is -0.3. Z-score is 0.0. The bone mineral density of the left femoral neck is 1.021 grams per cm squared. T-score is 0.1. Z-score is 0.4. Bone mineral density right femoral neck is 1.059 grams per cm squared. T-score is 0.4. Z-score is 0.7. IMPRESSION: IMPRESSION: Bone mineral density is normal. Jacqueline Peñaloza MD IMG DEXA ORDERABLES Final Re sult from Last 3 Months or Most Recently Relevant to Health Maintenance Insurance MEDICARE C AETNA Advance Directives * No Code Status (Latest Code Status on File) Date Activated Date Inactivated Comments 02/02/2010 3:50 PM yes, Rachel Foy [facility] Care Teams Mechanical Integrity Engineer Relationship Specialty Start Date End Date Provider, None [place] PCP - General 08/15/24 Steven Peck Jr., MD Consulting Physician Neurology 04/09/15 Anahi Park MD Anesthesiology 04/09/15
--- OUTSIDE RECORDS SUMMARY | 2025-05-10 09:15 | XMS_ITS | Encounter Summary ---
Author Organization [facility] Address [address] [place] [address] Phone Care Team Providers Care Division Road Supervisor Name Role Phone Cisco Gomez MD, Steven Dickens Unavailable Unav ailable Anahi Park MD Unavailable [phone] Provider, None Primary Care Provider Unavailabl e Reason for Visit * Reason Comments Medication Refill Encounter Details Date Type Department Care Team (Late st Contact Info) Description 08/10/2023 Refill [facility] - Internal Medicine - [facility] [address] [place] [address] Emily Shane APRN, COAT REPAIR INSPECTOR [address] [place], [place] [address] Medication Refill Social History Tobacco Use Types Packs/Day Years Used Date Smoking Tobacco: Never Smokeless Tobacco: Never Alcohol Use Standard Drinks/Week Comments No 0 [...] on file Legal Sex Female 2:57 AM FIELD EXAMINER Gender Identity Not on file Sexual Orientation Not on file Occupation Industry Job Start Date Job End Date Not on file Not on file Not on file Not on file documented as of this encounter Plan of Treatment Not on file documented as of this encounter Visit Diagnoses Diagnosis Essential hypertension Unspecified essential hypertension documented in this encounter Additional Health Concerns Assessment Noted Time PHQ-9 Depression Total Score: 0 05/06/20 20 11:00 AM CDT documented as of this encounter Care Teams Division Road Supervisor Relationship Specialty Start Date End Date Provider, None [place] PCP - General 08/15/24 Steven Peck Jr., MD Consulting Physician Neurology 04/09/15 Anahi Park MD Anesthesiology 04/09/15 documented as of this encounter
--- OUTSIDE RECORDS SUMMARY | 2025-05-10 09:15 | XMS_ITS | Encounter Summary ---
Author Organization [facility] Address [address] [facility] [place] [address] Phone Care Team Providers Care Computer Support Technician Name Role Phone Cisco Gomez MD, Steven Dickens Unavailable Unav ailable Anahi Park MD Unavailable Emily Shane APRN, CNP Primary Care Provid er Provider, None Primary Care Provider Unavailabl e Reason for Visit * Reason Comments Medication Refill Encounter Details Date Type Department Care Team (Late st Contact Info) Description 01/18/2022 Refill [facility] - Internal Medicine - [facility] [address] [place] [address] Emily Shane APRN, SAND BOBBER [address] [place] [address] Medication Refill Social History Tobacco Use Types [...] on file Legal Sex Female 2:57 AM CARE SUPPORT REPRESENTATIVE Gender Identity Not on file Sexual Orientation Not on file Occupation Industry Job Start Date Job End Date Not on file Not on file Not on file Not on file documented as of this encounter Miscellaneous Notes * Telephone Encounter - Anya Joyce RN - 01/18/2022 4:03 PM CDT Medication failed the protocol, provider to review and approve the medication order if appropriate. Requested Prescriptions Pending Prescriptions Disp Refills SUMAtriptan (IMITREX) 100 MG Tablet [Pharmacy Med Name: SUMATRIPTAN 100MG TABLETS] 9 Tablet 3 Sig: USE DIRECTED MAY REPEAT DOSE IN 2 HOURS IF HEADACHE RECURS Not Delegated - Serotonin Agonists (Oral and Nasal) Protocol Failed - 01/18/2022 10:41 AM Failed - This refill cannot be delegated; check utilization no more than 9 doses per month Failed - No documented Systolic BP > 200 within past 3 months Passed - Visit with relevant provider in past 24 months or upcoming 90 days Recent Visits Date Type Provider Dept 10/21/21 Telemedicine Emily Shane APRN, CNP [facility] 11/19/20 Office Visit Emily Shane APRN, CNP [facility] 05/06/20 Office Visit Emily Shane APRN, CNP [facility] Showing recent visits within past 730 days and meeting all other requirements Future Appointments No visits were found meeting these conditions. Showing future appointments within next 90 days and meeting all other requirements Passed - Number of active Serotonergic medications less than 3 documented in this encounter Plan of Treatment Not on file documented as of this encounter Visit Diagnoses Diagnosis Migraine without aura and without status migrainosus, not intractable Migraine without aura, without mention of intractable migraine without mention of status migrainosus documented in this encounter Additional Health Concerns Assessment Noted Time PHQ-9 Depression Total Score: 0 05/06/20 20 11:00 AM CDT documented as of this encounter Care Teams Computer Support Technician Relationship Specialty Start Date End Date Emily Shane APRN, [place] [address] [place] [address] PCP - General Advanced Practice Nurse 05/06/20 3 Provider, None [place] PCP - General 08/15/24 Steven Peck Jr., MD Consulting Physician Neurology 04/09/15 Anahi Park MD Anesthesiology 04/09/15 documented as of this encounter
--- OUTSIDE RECORDS SUMMARY | 2025-05-10 09:15 | XMS_ITS | Encounter Summary ---
Author Organization [facility] Address [address] [facility] [place] [address] Phone Care Team Providers Care Gyro Compass Tester Name Role Phone Cisco Gomez MD, Steven Dickens Unavailable Unav ailable Anahi Park MD Unavailable Emily Shane APRN, [place] Primary Care Provid er Provider, None Primary Care Provider Unavailabl e Reason for Visit * Reason Comments Medication Refill Encounter Details Date Type Department Care Team (Late st Contact Info) Description 06/02/2021 Refill [facility] [address] [place], [place] [id number] Emily Shane APRN, OUTSOLE ROUNDER [address], [place] [id number] Medication Refill Social History Tobacco Use Types [...] on file 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 Requested Prescriptions Pending Prescriptions Disp Refills SUMAtriptan (IMITREX) 100 MG Tablet [Pharmacy Med Name: SUMATRIPTAN 100MG TABLETS] 27 Tablet 0 Sig: USE DIRECTED. REPEAT IN 2 HOURS IF HEADACHE RECURS [facility]: Migraine Therapy Passed - 06/02/2021 3:42 AM Passed - Valid encounter within last 12 months Past Office Visits Recent Outpatient Visits 6 months ago Urinary frequency [facility] Emily Shane APN, OUTSOLE ROUNDER 1 year ago Essential hypertension [facility] Internal [facility] Emily Shane APN, OUTSOLE ROUNDER 1 year ago Essential hypertension [facility] Malaika Mitchell APN, OUTSOLE ROUNDER 2 years ago Essential hypertension [facility] Emily Shane APN, OUTSOLE ROUNDER 2 years ago DDD (degenerative disc disease), cervical- chronic neck pain- on Lyrica BID. She statesdoes seem to keep her pain controlled. She states has seen pain specialist. S/p neck surgery. Sees Dr. Park. [facility] Emily Shane APN, OUTSOLE ROUNDER Upcoming Appointments Future Appointments In 1 week [facility] Internal [facility] sofie ROLL OVER PRESS OPERATOR - Recent and Past Visits Recent Visits Date Type Provider Dept 11/19/20 Office Visit Emily Shane APN, CNP [facility] 05/06/20 Office Visit Emily Shane APN, CNP [facility] Showing recent visits within past 460 days with a meds authorizing provider and meeting all other requirements Future Appointments No visits were found meeting these conditions. Showing future appointments within next 90 days with a meds authorizing provider and meeting all other requirements documented in this encounter Plan of Treatment Not on file documented as of this encounter Visit Diagnoses Diagnosis Migraine without aura and without status migrainosus, not intractable Migraine without aura, without mention of intractable migraine without mention of status migrainosus documented in this encounter Additional Health Concerns Assessment Noted Time PHQ-9 Depression Total Score: 0 05/06/20 11:00 AM CDT documented as of this encounter Care Teams Gyro Compass Tester Relationship Specialty Start Date End Date Emily Shane APRN, OUTSOLE ROUNDER [address] [place] [address] PCP - General Advanced Practice Nurse 05/06/20 3 Provider, None [place] PCP - General 08/15/24 Steven Peck Jr., MD Consulting Physician Neurology 04/09/15 Anahi Park MD Anesthesiology 04/09/15 documented as of this encounter
--- OUTSIDE RECORDS SUMMARY | 2025-05-10 09:15 | XMS_ITS | Encounter Summary ---
Author Organization [facility] Address [address] [facility] [place] [address] Phone Care Team Providers Care Heel Attacher Wood Name Role Phone Cisco Gomez MD, Steven Dickens Unavailable Unav ailable Anahi Park MD Unavailable [phone] Emily Shane APRN, [place] Primary Care Provid er Provider, None Primary Care Provider Unavailabl e Reason for Visit * Reason Comments Medication Refill Encounter Details Date Type Department Care Team (Late st Contact Info) Description 09/18/2021 Refill [facility] [address] [place], [place] [id number] mEily Shane APRN, SNACK STEWARDESS [address] [place], [place] [id number] Medication Refill Social History Tobacco Use Types [...] on file 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 Requested Prescriptions Pending Prescriptions Disp Refills SUMAtriptan (IMITREX) 100 MG Tablet [Pharmacy Med Name: SUMATRIPTAN 100MG TABLETS] 9 Tablet 3 Sig: USE DIRECTED MAY REPEAT DOSE IN 2 HOURS IF HEADACHE RECURS Not Delegated - Serotonin Agonists (Oral and Nasal) Protocol Failed - 09/18/2021 9:54 AM Failed - This refill cannot be delegated; check utilization no more than 9 doses per month Failed - No documented Systolic BP > 200 within past 3 months Passed - Visit with relevant provider in past 24 months or upcoming 90 days Recent Visits Date Type Provider Dept 11/19/20 Office Visit Emily Shane APRN, CNP [facility] 05/06/20 Office Visit Emily Shane APRN, CNP [facility] Showing recent visits within past 730 days and meeting all other requirements Future Appointments No visits were found meeting these conditions. Showing future appointments within next 90 days and meeting all other requirements Passed - Number of active Serotonergic medications less than 3 ER/WAITRESS TAVERN documented in this encounter Plan of Treatment [...] documented as of this encounter Care Teams Heel Attacher Wood Relationship Specialty Start Date End Date Emily Shane APRN, SNACK STEWARDESS [address] [place] [address] PCP - General Advanced Practice Nurse 05/06/20 3 Provider, None [place] PCP - General 08/15/24 Steven Peck Jr., MD Consulting Physician Neurology 04/09/15 Anahi Park MD Anesthesiology 04/09/15 documented as of this encounter
--- OUTSIDE RECORDS SUMMARY | 2025-05-10 09:15 | XMS_ITS ---
Author Organization [facility] [place] ([address]) Address [address] [place] [address] Care Team Providers Care Canal Boat Captain Name Role Phone Shazia King Primary Care Provider Derik Suarez Unavailable [phone] Suly Fontanez [phone] REASON FOR VISIT Rash follow-up Social History Sex Assigned At : Social History Observation Description Sex Assigned At Female Encounters Encounter Location Date Provider Diagnosis [facility] [address] [place] [address] 02/05/2025 Suly Fontanez Plan Of Treatment No Information Progress Notes * Shayy STEARNSDOB: [birth year] (74 yo F)Acc No.[id number]:02/05/2025 Progress Notes Patient: Jordana LEIGHnatalia Hale Provider: JAZZMINE Ricci :1950 A ge:74 Y S ex:Female Date:02/05/2025 [address] [place] [id number] Pcp:Shazia King Subjective: * Chief Complaints: * 1 . Rash follow-up. * Medical History: Objective: * Vitals: Assessment: Plan: * Treatment: * Billing Information: * Visit Code: * Procedure Codes: * Electronic signature of Suly Fontanez DNP, FNP-C on 05/10/2025 at 09:15 AM CDT Sign off status: Pending * Provider: JAZZMINE Ricci Date: 0 02/05/2025 Generated for Joleen bustillos/Ema/Court on: 0 05/10/2025 09:15 AM CDT
--- OUTSIDE RECORDS SUMMARY | 2025-05-10 09:15 | XMS_ITS | Encounter Summary ---
Author Organization [facility] Address [address] [facility] [place] [address] Phone Care Team Providers Care Testing Engineer Name Role Phone Cisco Gomez MD, Steven Dickens Unavailable Unav ailable Anahi Park MD Unavailable Emily Shane APRN, CNP Primary Care Provid er Provider, None Primary Care Provider Unavailabl e Reason for Visit * Reason Comments Medication Refill Encounter Details Date Type Department Care Team (Late st Contact Info) Description 04/19/2023 Refill [facility] [address] [place] [address] Emily Shane APRN, DISPATCH SPECIALIST [address] [place] [address] Medication Refill Social History Tobacco [...] on file 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 Gender Identity Not on file Sexual Orientation Not on file Occupation Industry Job Start Date Job End Date Not on file Not on file Not on file Not on file documented as of this encounter Miscellaneous Notes * Telephone Encounter - Melissa Nolasco - 05/04/2023 2:50 PM CDT Patient has moved * Telephone Encounter - Melissa Nolasco - 04/27/2023 1:37 PM CDT Left message for patient to schedule appt * Telephone Encounter - Melissa Nolasco - 04/20/2023 2:50 PM CDT Left message for patient to schedule appt documented in this encounter Plan of Treatment Not on file documented as of this encounter Visit Diagnoses Not on filedocumented in this encounter Additional Health Concerns Assessment Noted Time PHQ-9 Depression Total Score: 0 05/06/20 20 11:00 AM CDT documented as of this encounter Care Teams Testing Engineer Relationship Specialty Start Date End Date Emily Shane APRN, CNP [address] [place] [address] PCP - General Advanced Practice Nurse 05/06/20 3 Provider, None [place] PCP - General 08/15/24 Steven Peck Jr., MD Consulting Physician Neurology 04/09/15 Anahi Park MD Anesthesiology 04/09/15 documented as of this encounter
--- OUTSIDE RECORDS SUMMARY | 2025-05-10 09:15 | XMS_ITS | Encounter Summary ---
Author Organization [facility] Address [address] [facility] [place] [address] Phone Care Team Providers Care Eye Clinic Manager Name Role Phone Cisco Gomez MD, Steven Dickens Unavailable Unav ailable Anahi Park MD Unavailable Emily Shane APRN, CNP Primary Care Provid er Provider, None Primary Care Provider Unavailabl e Reason for Visit * Reason Comments Medication Refill Encounter Details Date Type Department Care Team (Late st Contact Info) Description 12/14/2021 Refill [facility] [address] [place] [address] Emily Shane APRN, BRAZING FURNACE OPERATOR [address] [place] [address] Medication Refill Social History Tobacco [...] on file 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 No / Unsure 12/03/2021 11:15 AM MASTER BARBER documented as of this encounter Miscellaneous Notes * Telephone Encounter - Anya Joyce, RN - 12/14/2021 11:20 AM CDT Requested too soon documented in this encounter Plan of Treatment Not on file documented as of this encounter Visit Diagnoses Not on filedocumented in this encounter Additional Health Concerns Assessment Noted Time PHQ-9 Depression Total Score: 0 05/06/20 11:00 AM CDT documented as of this encounter Care Teams Eye Clinic Manager Relationship Specialty Start Date End Date Emily Shane APRN, BRAZING FURNACE OPERATOR [address] [place] [address] PCP - General Advanced Practice Nurse 05/06/20 3 Provider, None [place] PCP - General 08/15/24 Steven Peck Jr., MD Consulting Physician Neurology 04/09/15 Anahi Park MD Anesthesiology 04/09/15 documented as of this encounter
--- OUTSIDE RECORDS SUMMARY | 2025-05-10 09:15 | XMS_ITS | Encounter Summary ---
Author Organization [facility] Address [address] [facility] [place] [address] Phone Care Team Providers Care Barber Or Beauty Shop Manager Name Role Phone Cisco Gomez MD, Steven Dickens Unavailable Unav ailable Anahi Park MD Unavailable [phone] Emily Shane APRN, CNP Primary Care Provid er Provider, None Primary Care Provider Unavailabl e Reason for Visit * Reason Comments Medication Refill Encounter Details Date Type Department Care Team (Late st Contact Info) Description 05/20/2022 Refill [facility] [address] [place] [address] Emily Shane APRN, CRIMPER ASSEMBLER [address] [place] [address] Medication Refill Social History Tobacco [...] on file 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 Requested Prescriptions Pending Prescriptions Disp Refills SUMAtriptan (IMITREX) 100 MG Tablet [Pharmacy Med Name: SUMATRIPTAN 100MG TABLETS] 9 Tablet 3 Sig: USE DIRECTED MAY REPEAT IN 2 HOURS IF HEADACHE RECURS Not Delegated - Serotonin Agonists (Oral and Nasal) Protocol Failed - 05/20/2022 8:49 AM Failed - This refill cannot be delegated; check utilization no more than 9 doses per month Failed - No documented Systolic BP > 200 within past 3 months Passed - Visit with relevant provider in past 24 months or upcoming 90 days Recent Visits Date Type Provider Dept 10/21/21 Telemedicine Emily Shane APRN, CNP [facility] 11/19/20 Office Visit Emily Shane APRN, CNP [facility] Showing recent visits within past 730 days [...] documented as of this encounter Care Teams Barber Or Beauty Shop Manager Relationship Specialty Start Date End Date Emily Shane APRN, CRIMPER ASSEMBLER [address] [place] [address] PCP - General Advanced Practice Nurse 05/06/20 3 Provider, None [place] PCP - General 08/15/24 Steven Peck Jr., MD Consulting Physician Neurology 04/09/15 Anahi Park MD Anesthesiology 04/09/15 documented as of this encounter
--- OUTSIDE RECORDS SUMMARY | 2025-05-10 09:16 | XMS_ITS | Patient Health Record ---
Author Organization [facility] [employer] [place] ([address]) Address [address] [place] [address] Care Team Providers Care I[employer] Mainframe Systems Programmer Name Role Phone FernandoShazia Primary Care Provider Derik Suarez Unavailable [phone] Keke Mcneil Unavailable [phone] Suly Fontanez Unavailable [phone] Allergies Allergen (clinical drug ingredient) Drug/Non Drug Allergy documented on EMR Reaction Allergy Type Onset Date Status Darvocet (uncoded) Nausea Allergy A ctive Sulfamethoxazole (uncoded) Hives Allergy Active trimethoprim Trimethoprim (uncoded) Hives Allergy Active Results Component Value Reference Range Notes -Chronic Urticaria -- Anti-I gE ([id number]) Reviewed date:07/24/2024 07:57:18 AM Interpretation:Normal Performing Lab:[facility] [address] [place] [id number], Phone - [phone], Director - PhDNeil Notes/Report: Anti-IgE* Normal Normal This LIYAH measures IgG antibodies specific for IgE. A result of normal indicates that the level of IgG anti-IgE antibodies is similar to that seen in a population of healthy individuals. A result of elevated indicates an increased level of IgG anti-IgE antibodies compared to healthy individuals. These autoantibodies have been implicated as a causative agent in autoimmune chronic urticaria and atopic dermatitis. FLAG Interpretation: A = Abnormal, H = High, L = Low -Tryptase ([id number]) Reviewed date:07/17/2024 09:55:51 AM Interpretation:Normal Performing Lab:[facility], [address] [facility], [place], [place] [id number], Phone - [phone], Director - Nickolas Notes/Report: Tryptase 5.9 2.2-13.2 ug/L -CU Panel ([id number]) Reviewed date:08/06/2024 08:55:51 AM Interpretation:Abnormal Performing Lab:[facility], [address] [place], [place] [id number], Phone - [phone], Director - Satnam Notes/Report: Glucose 100 70-99 mg/dL BUN 11 8-27 mg/dL Creatinine 0.83 0.57-1.00 mg/dL eGFR 75 >59 mL/min/1.73 BUN/Creatinine Ratio 13 12-28 Sodium 138 134-144 mmol/L Potassium 4.1 3.5-5.2 mmol/L Chloride 101 96-106 mmol/L Carbon Dioxide, Total 23 20-29 mmol/L Calcium 9.9 8.7-10.3 mg/dL Protein, Total 6.4 6.0-8.5 g/dL Albumin 4.2 3.8-4.8 g/dL Globulin, Total 2.2 1.5-4.5 g/dL Bilirubin, Total <0.2 0.0-1.2 mg/dL Alkaline Phosphatase 57 44-121 IU/L AST (SGOT) 17 0-40 IU/L ALT (SGPT) 12 0-32 IU/L Immunoglobulin A, Qn, Serum 144 64-422 mg/dL Immunoglobulin E, Total 9 6-495 IU/mL TSH 1.780 0.450-4.500 uIU/mL JOLEEN Direct Negative Negative Rheumatoid Factor (RF) 10.8 <14.0 IU/mL Thyroid Peroxidase (TPO) Ab 10 0-34 IU/mL Thyroglobulin Antibody <1.0 0.0-0.9 IU/mL Thyroglobulin Antibody measured by [employer] . It should be noted that the presence of thyroglobulin antibodies may not be pathogenic nor diagnostic, especially at very low levels. The assay marine superintendent has found that four percent of individuals without evidence of thyroid disease or autoimmunity will have positive TgAb levels up to 4 IU/mL. Deamidated Gliadin Abs, IgA 4 0-19 units Negative 0 - 19 Weak Positive 20 - 30 Moderate to Strong Positive >30 Deamidated Gliadin Abs, IgG 3 0-19 units Negative 0 - 19 Weak Positive 20 - 30 Moderate to Strong Positive >30 t-Transglutaminase (tTG) IgA <2 0-3 U/mL Negative 0 - 3 Weak Positive 4 - 10 Positive >10 . Tissue Transglutaminase (tTG) has been identified as the endomysial antigen. Studies have demonstr- ated that endomysial IgA antibodies have over 99% specificity for gluten sensitive enteropathy. t-Transglutaminase (tTG) IgG <2 0-5 U/mL Negative 0 - 5 Weak Positive 6 - 9 Positive >9 Endomysial Antibody IgA Negative Negative WBC 10.1 3.4-10.8 x10E3/uL RBC 4.03 3.77-5.28 x10E6/uL Hemoglobin 12.9 11.1-15.9 g/dL Hematocrit 38.9 34.0-46.6 % MCV 97 79-97 fL MCH 32.0 26.6-33.0 pg MCHC 33.2 31.5-35.7 g/dL RDW 13.0 11.7-15.4 % Platelets 318 150-450 x10E3/uL Neutrophils 53 Not Estab. % Lymphs 38 Not Estab. % Monocytes 6 Not Estab. % Eos 2 Not Estab. % Basos 1 Not Estab. % Neutrophils (Absolute) 5.3 1.4-7.0 x10E3/uL Lymphs (Absolute) 3.8 0.7-3.1 x10E3/uL Monocytes(Absolute) 0.6 0.1-0.9 x10E3/uL Eos (Absolute) 0.2 0.0-0.4 x10E3/uL Baso (Absolute) 0.1 0.0-0.2 x10E3/uL Immature Granulocytes 0 Not Estab. % Immature Grans (Abs) 0.0 0.0-0.1 x10E3/uL [facility] 4 0-40 mm/hr Specific Pound 1.009 1.005-1.030 pH 5.5 5.0-7.5 Urine-Color Yellow Yellow Appearance Clear Clear WBC Esterase 1+ Negative Protein Negative Negative/Trace Glucose Negative Negative Ketones Negative Negative Occult Blood Negative Negative Bilirubin Negative Negative Urobilinogen,Semi-Qn 0.2 0.2-1.0 mg/dL Nitrite, Urine Negative Negative Microscopic Examination See below: Micr oscopic was indicated and was performed. WBC 0-5 0 - 5 /hpf RBC None seen 0 - 2 /hpf Epithelial Cells (non renal) 0-10 0 - 10 /hpf Casts None seen None seen /lpf Bacteria None seen None seen/Few -Chronic Urticaria -- Autoim mune IgE receptor antibody ([id number]) Reviewed date:07/30/2024 12:32:45 PM Interpretation:Abnormal Performing Lab:[facility] [address] [place] [address], [facility] [address] [place] [id number], Phone - [phone], Director - PhDNeil Notes/Report: cu index 15.3 <10 The CU Index(R) test is the second generation Functional Anti-FceR test. Patients with a CU Index(R) greater than or equal to 10 have basophil reactive factors in their serum which supports an autoimmune basis for disease. *This test was developed and its performance characteristics determined by [employer]. It has not been cleared or approved by the U.S. Food and Drug Administration. FLAG Interpretation: A = Abnormal, H = High, L = Low Reason For Referral No Information Medications Medication SIG (Take, Route, Frequency, Duration) Notes Start Date End Date Status cycloSPORINE 0.05 % 1 drop into affected eye Ophthalmic Twice a day Active DULoxetine HCl 60 MG 1 capsule Orally On a day Active Pregabalin 100 MG 1 capsule Orally Onc e a day Active Progesterone 100 MG 1 capsule at bedtime Orally Once a day Active Meclizine HCl 25 MG TAKE 1 TABLET BY RACHEL TH THREE TIMES DAILY NEEDED FOR DIZZINESS Oral; Duration: 10 Days Not-Taki ng SUMAtriptan Succinate 100 MG 1 tablet as needed, may take second dose at least 2 hours after first dose up to 2 tablets per day as needed Orally Once a day Active Montelukast Sodium 10 MG TAKE 1 TABLET B Y MOUTH DAILY; Duration: 30 Not-Taking Triamcinolone Acetonide 0.1 % 1 application Externally Twice a day; Duration: 30 days 12/17/2024 Active Triamcinolone Acetonide 55 MCG/ACT 1 spray in each nostril Nasally Twice a day; Duration: 30 days Active Montelukast Sodium 10 MG TAKE 1 TABLET B Y MOUTH DAILY; Duration: 30 Active Montelukast Sodium 10 MG 1 tablet Orally Once a day; Duration: 30 days Active oxyBUTYnin Chloride ER 10 MG Oral; Duration: 90 Days Acti ve Famotidine 20 MG 1 tablet Orally Twic e a day; Duration: 30 days Active Cetirizine HCl 10 MG 2 tablets Orally Tw ice a day; Duration: 30 days Active Lisinopril 20 MG Oral; Duration: 90 Days Active HYDROcodone-Acetaminophen 7.5-325 MG Oral; Duration: 30 Days Acti ve Mounjaro 10 MG/0.5ML Subcutaneous; Durat ion: 28 Days Active buPROPion HCl 100 MG 1 tablet Orally Twi ce a day Active Immunizations Vaccine Route Administration Date Status Comme nts Influenza Unknown 07/26/2023 [employer] In[employer] mation NOC Prevnar 13 Unknown 07/09/2019 Administered [employer] I nformation NOC Tdap Unknown 04/10/2013 Administ[employer] Infor mation Social History Tobacco Use: Social History Observation Description Date Details (start date - stop date) Never Smoker NA - NA Sex Assigned At : Social History Observation Description Sex Assigned At Female Smoking Smart Form: Question Answer Notes Are you a: never smoker Additional Findings:Tobacco Non-User Non-smoker for congregation reasons Problems Problem Type SNOMED Code ICD Code Onset Dates Problem Status W/U Status Risk Notes Problem Idiopathic urticaria (83208860) Idiopathic urticaria (L50.1) Active confirmed Problem Chronic migraine without aura, non-refractory (disorder) (93833447907771 0) Migraine without aura, not intractable, without status migrainosus (G43.009) Active confirmed Problem Chronic pain syndrome (043353196) Chronic pain syndrome (G89.4) Active confirmed Problem Rash and other nonspecific skin eruption (R21) Active confirmed Vital Signs Respiratory Rate 17 /min 12/13/2024 Oximetry 97 % 12/17/2024 Blood pressure diastolic 79 mm Hg 12/17/2024 Height 65 in 12/17/2024 Blood pressure systolic 131 mm Hg 12/17/2024 Weight 148.8 lbs 12/17/2024 BMI 24.76 kg/m2 12/17/2024 Encounters Encounter Location Date Provider Diagnosis [facility] [address] [place] [id number] 12/10/2024 Derik Jackman Idiopathic urticaria L50.1 and Rash and other nonspecific skin eruption R21 [facility] [address] [place] [address] 12/12/2024 Keke Usselmann Idiopathic urticaria L50.1 and Rash and other nonspecific skin eruption R21 [address] [address] 12/13/2024 Keke Usselmann Idiopathic urticaria L50.1 and Rash and other nonspecific skin eruption R21 [address] [address] 12/17/2024 Derik Jackman Idiopathic urticaria L50.1 and Rash and other nonspecific skin eruption R21 [address] [address] 08/06/2024 Derik Jackman Idiopathic urticaria L50.1 and Rash and other nonspecific skin eruption R21 [address] [address] 07/09/2024 Derik Jackman Idiopathic urticaria L50.1 and Rash and other nonspecific skin eruption [address] [place] [address] 01/04/2025 Derik Jackman [facility] [address] [place] [address] 07/09/2024 Derik Jackman Assessments Encounter Date Diagnosis (ICD Code) Assessment Notes Treatment Notes Treatment Clinical Notes Section Notes 12/10/2024 Idiopathic urticaria (ICD-10 - L50.1) As above. Noted elevated CU index though pictures and timeline of rash not c/w urticaria. Cosider trial of Xolair to assess benefit 12/10/2024 Rash and other nonspecific skin eruption (ICD-10 - R21) Recurrent waxing and waning rash since June 2023 leading into recurrent hives occurring diffusely at a daily rate. Lesions are noted to be itchy and occur and occur throughout the day. No noted triggers at this time. She is seen at [facility] dermatology noting she was not sure [...] worsen after returning after visit friend in [place] for days at a time. CU work-up obtained since last visit with mildly elevated CU index, otherwise without clear signed of thyroid involvement or elevated tryptase level. At this point,we felt best to rule out contact dermatitis aspect though presention today with celar picking occuring almost concerning for PN. Patch testing was initiated today using [employer] patch testing delivery system (most common topical allergens causing delayed-type hypersensitivity reactions). Keep back dry and avoid topical and oral steroids. Return in 2 days for patch removal and initial read. 12/12/2024 Idiopathic urticaria (ICD-10 - L50.1) As above. Noted elevated CU index though pictures and timeline of rash not c/w urticaria. Cosider trial of Xolair to assess benefit 12/12/2024 Rash and other nonspecific skin eruption (ICD-10 - R21) Recurrent waxing and waning rash since June 2023 leading into recurrent hives occurring diffusely at a daily rate. Lesions are noted to be itchy and occur and occur throughout the day. No noted triggers at this time. She is seen at [facility] dermatology noting she was not sure [...] worsen after returning after visit friend in [place] for days at a time. CU work-up obtained since last visit with mildly elevated CU index, otherwise without clear signed of thyroid involvement or elevated tryptase level. At this point,we felt best to rule out contact dermatitis aspect though presention today with celar picking occuring almost concerning for PN. - Patch testing with [employer] patch testing delivery system (most common topical allergens causing delayed-type hypersensitivity reactions) was removed today at 48 hours with sensitivity present and listed below. - She was instructed to keep her back dry and avoid topical steroids until patch testing is complete. - Return tomorrow for patch read #2 at 72 hours 12/13/2024 Idiopathic urticaria (ICD-10 - L50.1) As above. Noted elevated CU index though pictures and timeline of rash not c/w urticaria. Consider trial of Xolair to assess benefit 12/13/2024 Rash and other nonspecific skin eruption (ICD-10 - R21) Recurrent waxing and waning rash since June 2023 leading into recurrent hives occurring diffusely at a daily rate. Lesions are noted to be itchy and occur and occur throughout the day. No noted triggers at this time. She is seen at [facility] dermatology noting she was not sure [...] worsen after returning after visit friend in [place] for days at a time. CU work-up obtained since last visit with mildly elevated CU index, otherwise without clear signed of thyroid involvement or elevated tryptase level. At this point,we felt best to rule out contact dermatitis aspect though presention today with celar picking occuring almost concerning for PN. - Patch testing with [employer] patch testing delivery system (most common topical allergens causing delayed-type hypersensitivity reactions) was read today at 72 hours with several sensitivities present and listed below. - Visible scratches with scabs noted, specifically in areas of patches 21-30 and 31-40, see pic attached. Patient confirms she has been scratchign. Informed her she needs to refrain from scartching throughout reaminder of test as this can affect the accuracy of results. She verablized understanding. - She was instructed to keep her back dry and avoid topical steroids until patch testing is complete. - Return Tuesday for final patch read at 168 hours 12/17/2024 Idiopathic urticaria (ICD-10 - L50.1) As above. Noted elevated CU index though pictures and timeline of rash not c/w urticaria. Minimal difference noted on high-dose anithistamines. Consider trial of Xolair to assess benefit though presentation appears more in line with contact derm vs PN 12/17/2024 Rash and other nonspecific skin eruption (ICD-10 - R21) Recurrent waxing and waning rash since June 2023 leading into recurrent hives occurring diffusely at a daily rate. Lesions are noted to be itchy and occur and occur throughout the day. No noted triggers at this time. She is seen at [facility] dermatology noting she was not sure [...] worsen after returning after visit friend in [place] for days at a time. CU work-up obtained since last visit with mildly elevated CU index, otherwise without clear signed of thyroid involvement or elevated tryptase level. At this point,we felt best to rule out contact dermatitis aspect though presention today with celar picking occuring almost concerning for PN. - Patch testing with [employer] patch testing delivery system (most common topical allergens causing delayed-type hypersensitivity reactions) was read today at 168 as listed below. - Prior isible scratches with scabs noted, specifically in areas of patches 21-30 and 31-40. - Printed information on how to recognize and avoid these contact allergens was provided to the patient, and safe product lists from the [employer] will be e-mail to him separately - Will plan on product elimination in the mean time. That said, presenation is still suspicious for underlying PN. Advised evaluation at [facility] for 2nd option. Consider Dupixent - Return in 2 months for E&M 08/06/2024 Idiopathic urticaria (ICD-10 - L50.1) As above. Noted elevated CU index though pictures and timeline of rash not c/w urticaria. Cosider trial of Xolair to assess benefit 08/06/2024 Rash and other nonspecific skin eruption (ICD-10 - R21) Recurrent waxing and waning rash since June 2023 leading into recurrent hives occurring diffusely at a daily rate. Lesions are noted to be itchy and occur and occur throughout the day. No noted triggers at this time. She is seen at [facility] dermatology noting she was not sure [...] worsen after returning after visit friend in [place] for days at a time. She does [...] topcial steroids one week before patch testing 07/09/2024 Idiopathic urticaria (ICD-10 - L50.1) History of ongoing daily hives present since October without clear cause. She has been following with Dr. Fontaine's office with multiple bx's taken. Will request for review. She notes recurrent raised lesions that will last 24-72 hours at a time that are noted to be pruritic leading to bruising. This presentation makes me more concerned for an underlying vasculitis rather than straight CIU with additional pinprick lesions present to arms today. She reports recent CBC and thyroid panel were normal with PCP - Dr. King. Will request records to review as well. No katerina hives were noted on PE today. Will plan on starting high-dose antihistamines today of which she reports mild benefit in the past. Will also obtain CIU work-up in the meantime as well. Await response to antihistamines and records from other providers. Consider trial of Xolair vs potential patch testing based on results to [place] out contact derm. Of note, she has been on hydrocodone x 15 years daily which is known to bring about hive flare-ups. Consider trial off to assess benefit. Return in one month for E&M. Advsied taking pictures of hives when they present 07/09/2024 Rash and other nonspecific skin eruption (ICD-10 - R21) as above 12/12/2024 Other 12/10/2024 Other 08/06/2024 Other 10/01/2024 Other 07/09/2024 Other 10/15/2024 Other 12/13/2024 Other 12/17/2024 Other 11/19/2024 Other Plan Of Treatment No Information Insurance Providers Payer Name Payer Address Payer Phone Subscriber Number Group Number Insured Name Patient Relationship to Insured Coverage Start Date Coverage End Date [employer] [address] [place] [address] [id number] Shayy Stearns Self - patient is the insured 5 Medical (General) History Medical History History ICD Code Depression, unspecified F32.A Essential (primary) hypertension I10 Chronic pain syndrome G89.4 Migraine without aura, not intractable, without status migrainosus G43.009 Prediabetes R73.03 Rash and other nonspecific skin eruption R21 Surgical History Surgery Date(Month/Year) Ruptured appendix 06/24/2021 Lumbar neurostimulator Cervical neurostimulaator Cervical neurostimulaator 06/26/2020 Cervical. neck fusion surgery 06/26/2000 Cervical. neck surgery Back laminectory. L5 S 1 Back laminectory. L5 S 1 06/26/1994 Cholecystectomy
--- OUTSIDE RECORDS SUMMARY | 2025-05-10 09:16 | XMS_ITS | Encounter Summary ---
Author Organization [facility] Address [address] [facility] [place] [address] Phone Care Team Providers Care Brand Lead Name Role Phone Cisco Gomez MD, Steven Dickens Unavailable Unav ailable Anahi Park MD Unavailable Emily Shane APRN, ODD JOBS DAY WORKER Primary Care Provid er Provider, None Primary Care Provider Unavailabl e Reason for Visit * Reason Comments Medication Refill Encounter Details Date Type Department Care Team (Late st Contact Info) Description 06/18/2020 Refill [facility] [address], [place] [phone] Emily Shane APRN, ODD JOBS DAY WORKER [address], [place] [id number] Medication Refill Social History Tobacco Use Types Packs/Day Years Used Date Smoking Tobacco: Never Smokeless Tobacco: Never Alcohol Use Standard Drinks/Week Comments No 0 (1 standard drink = 0.6 oz pur e alcohol) PHQ-2 Answer Date Recorded Total Score - Questions 1-9 0 04/26 Sexually Active Control Partners Comments Not Currently Comments No Sex and Gender Information Value Date Recorded Sex Assigned at Not on file Legal Sex Female 2:57 AM CREDIT COLLECTIONS REP Gender Identity Not on file Sexual Orientation Not on file Occupation Industry Job Start Date Job End Date Not on file Not on file Not on file Not on file documented as of this encounter Miscellaneous Notes * Telephone Encounter - Kate Rowan RN - 06/19/2020 11:02 AM CDT Routing to provider to review and approve medication order r/t prn medication. Requested Prescriptions Pending Prescriptions Disp Refills SUMAtriptan (IMITREX) 100 MG Tablet [Pharmacy Med Name: SUMATRIPTAN 100MG TABLETS] 27 Tab 0 Sig: Use as directed. May repeat dose in 2 hours if headache recurs. Neurology: Migraine Therapy Passed - 06/18/2020 10:12 AM Passed - Valid encounter within last 12 months Past Office Visits Recent Outpatient Visits 1 month ago Essential hypertension [facility] Emily Shane APN, ODD JOBS DAY WORKER 11 months ago Essential hypertension [facility] Malaika Mitchell APN, ODD JOBS DAY WORKER 1 year ago Essential hypertension [facility] Emily Shane APN, ODD JOBS DAY WORKER 1 year ago DDD (degenerative disc disease), cervical- chronic neck pain- on Lyrica BID. She states does seem to keep her pain controlled. She states has seen pain specialist. S/p neck surgery. Sees Dr. Park. [facility] Emily Shane APN, ODD JOBS DAY WORKER 1 year ago Obstructive sleep apnea- does not use a machine. just manages by postion and weight reduction. [facility] Kate Cordova PAC Upcoming Appointments [employer] - Recent and Past Visits Recent Visits Date Type Provider Dept 05/06/20 Office Visit Emily Shane APN, CNP [facility] 07/09/19 Office Visit Malaika Mitchell APN, CNP [facility] Showing recent visits within past 460 days [...] documented as of this encounter Care Teams Brand Lead Relationship Specialty Start Date End Date Emily Shane, IZABELLA, ODD JOBS DAY WORKER [address] [place] [address] PCP - General Advanced Practice Nurse 05/06/20 3 Provider, None [place] PCP - General 08/15/24 Steven Peck Jr., MD Consulting Physician Neurology 04/09/15 Anahi Park MD Anesthesiology 04/09/15 documented as of this encounter
--- OUTSIDE RECORDS SUMMARY | 2025-05-10 09:16 | XMS_ITS | Encounter Summary ---
Author Organization [facility] Address [address] [facility] [place] [address] Phone Care Team Providers Care Horse Race Timer Name Role Phone Cisco Gomez MD, Steven Dickens Unavailable Unav ailable Anahi Park MD Unavailable Emily Shane APRN, CNP Primary Care Provid er Provider, None Primary Care Provider Unavailabl e Reason for Visit * Reason Comments Medication Refill Encounter Details Date Type Department Care Team (Late st Contact Info) Description 05/21/2021 Refill [facility] - Internal Medicine - [facility] [address] [place] [address] Emily Shane APRN, MEDICAL LIBRARIAN [address] [place] [address] Medication Refill Social History Tobacco [...] on file 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 Requested Prescriptions Pending Prescriptions Disp Refills oxybutynin (DITROPAN) 5 MG Tablet [Pharmacy Med Name: OXYBUTYNIN 5MG TABLETS] 90 Tablet 3 Sig: TAKE 1 TABLET BY MOUTH DAILY Urinary Anticholinergics Protocol Passed - 05/21/2021 9:35 AM Passed - Visit with relevant provider in past 12 months or upcoming 90 days Recent Visits Date Type Provider Dept 11/19/20 Office Visit Emily Shane APN, MEDICAL LIBRARIAN [facility] Showing recent visits within past 365 days and meeting all other requirements Future Appointments Date Type Provider Dept 06/15/21 Appointment Lab, Ca Internal Med [facility] Showing future appointments within next 90 days and meeting all other requirements Passed - GFR greater than or equal to 30 in past 12 months GFR, EST. NONAFRICAN Date Value Ref Range Status 11/26/2020 >60 >=60 Final documented in this encounter Plan of Treatment Not on file documented as of this encounter Visit Diagnoses Not on filedocumented in this encounter Additional Health Concerns Assessment Noted Time PHQ-9 Depression Total Score: 0 05/06/20 11:00 AM CDT documented as of this encounter Care Teams Horse Race Timer Relationship Specialty Start Date End Date Emily Shane APRN, MEDICAL LIBRARIAN [address] [place] [address] PCP - General Advanced Practice Nurse 05/06/20 3 Provider, None [place] PCP - General 08/15/24 Steven Peck Jr., MD Consulting Physician Neurology 04/09/15 Anahi Park MD Anesthesiology 04/09/15 documented as of this encounter
--- OUTSIDE RECORDS SUMMARY | 2025-05-10 09:16 | XMS_ITS | Encounter Summary ---
Author Organization [facility] Address [address] [facility] [place] [address] Phone Care Team Providers Care Marketing Sales Supervisor Name Role Phone Cisco Gomez MD, Steven Dickens Unavailable Unav ailable Anahi Park MD Unavailable Emily Shane APRN, SOCIAL SCIENCES RESEARCH SCIENTIST Primary Care Provid er Provider, None Primary Care Provider Unavailabl e Reason for Visit * Reason Comments Medication Refill Encounter Details Date Type Department Care Team (Late st Contact Info) Description 12/15/2020 Refill [facility] [address] [place], [place] [id number] Lydia Marsh APRN, SOCIAL SCIENCES RESEARCH SCIENTIST [address] [place], [place] [id number] Medication Refill Social History Tobacco Use Types [...] on file 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 No / Unsure 12/11/2020 7:50 AM CDT documented as of this encounter Miscellaneous Notes * Telephone Encounter - Chanda Jimenez, GABRIELA - 12/15/2020 10:57 AM CDT Per nursing clinical judgement, provider to review and approve the medication(s) order(s) if appropriate. Requested Prescriptions Pending Prescriptions Disp Refills SUMAtriptan (IMITREX) 100 MG Tablet [Pharmacy Med Name: SUMATRIPTAN 100MG TABLETS] 27 Tablet 0 Sig: USE DIRECTED, REPEAT DOSE IN 2 HOURS IF HEADACHE RECURS Neurology: Migraine Therapy Passed - 12/15/2020 9:14 AM Passed - Valid encounter within last 12 months Past Office Visits Recent Outpatient Visits 3 weeks ago Urinary frequency [facility] Emily Shane APN, CNP 7 months ago Essential hypertension [facility] Emily Shane APN, SOCIAL SCIENCES RESEARCH SCIENTIST 1 year ago Essential hypertension [facility] Malaika Mitchell APN, SOCIAL SCIENCES RESEARCH SCIENTIST 1 year ago Essential hypertension [facility] Emily Shane APN, SOCIAL SCIENCES RESEARCH SCIENTIST 1 year ago DDD (degenerative disc disease), cervical- chronic neck pain- on Lyrica BID. She states does seem to keep her pain controlled. She states has seen pain specialist. S/p neck surgery. Sees Dr. Park. [facility] Emily Shane APN, SOCIAL SCIENCES RESEARCH SCIENTIST Upcoming Appointments FILE CLERK DATA ENTRY - Recent and Past Visits Recent Visits Date Type Provider Dept 11/19/20 Office Visit Emily Shane APN, CNP [facility] 05/06/20 Office Visit Emily [facility] APN, CNP [facility] Showing recent visits within past 460 days [...] documented as of this encounter Care Teams Marketing Sales Supervisor Relationship Specialty Start Date End Date Emily Shane APRN, SOCIAL SCIENCES RESEARCH SCIENTIST [address] [place] [address] PCP - General Advanced Practice Nurse 05/06/20 3 Provider, None [place] PCP - General 08/15/24 Steven Peck Jr., MD Consulting Physician Neurology 04/09/15 Anahi Park MD Anesthesiology 04/09/15 documented as of this encounter
--- OUTSIDE RECORDS SUMMARY | 2025-05-10 09:16 | XMS_ITS | Encounter Summary ---
Author Organization [facility] Address [address] [facility] [place] [address] Phone Care Team Providers Care Room Cleaner Name Role Phone Cisco Gomez MD, Steven Dickens Unavailable Unav ailable Anahi Park MD Unavailable Provider, None Primary Care Provider Unavailabl e Reason for Visit * Reason Comments Medication Refill Encounter Details Date Type Department Care Team (Late st Contact Info) Description 05/04/2023 Refill [facility] - Internal Medicine - [facility] [address] [place] [address] Emily Shane APRN, OFFICE SUPPORT ASSOCIATE [address] [place], [place] [address] Medication Refill Social History Tobacco Use Types [...] on file 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
--- OUTSIDE RECORDS SUMMARY | 2025-05-10 09:16 | XMS_ITS | Encounter Summary ---
Author Organization [facility] Address [address] [facility] [facility] [address] Phone Care Team Providers Care Mat Roller Name Role Phone Cisco Gomez MD, Steven Dickens Unavailable Unav ailable Anahi Park MD Unavailable [phone] Emily Shane APRN, AIR COMMODORE Primary Care Provid er Provider, None Primary Care Provider Unavailabl e Reason for Visit * Reason Comments Medication Refill Encounter Details Date Type Department Care Team (Late st Contact Info) Description 09/14/2020 Refill [facility] [address] [place], [place] [id number] Emily Shane APRN, AIR COMMODORE [address] [place], [place] [address] Medication Refill Social History Tobacco Use Types [...] on file 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 Per nursing clinical judgement, provider to review and approve the medication(s) order(s) if appropriate. Requested Prescriptions Pending Prescriptions Disp Refills SUMAtriptan (IMITREX) 100 MG Tablet [Pharmacy Med Name: SUMATRIPTAN 100MG TABLETS] 27 Tab 0 Sig: USE DIRECTED. MAY REPEAT DOSE IN 2 HOURS IF HEADACHE RECURS Neurology: Migraine Therapy Passed - 09/14/2020 4:33 PM Passed - Valid encounter within last 12 months Past Office Visits Recent Outpatient Visits 4 months ago Essential hypertension [facility] Emily Shane APN, CNP 1 year ago Essential hypertension [facility] Malaika Mitchell APN, AIR COMMODORE 1 year ago Essential hypertension [facility] Emily Shane APN, CNP 1 year ago DDD (degenerative disc disease), cervical- chronic neck pain- on Lyrica BID. She states does seem to keep her pain controlled. She states has seen pain specialist. S/p neck surgery. Sees Dr. Park. [facility] Emily Shane APN, CNP 2 years ago Obstructive sleep apnea- does not use a machine. just manages by postion and weight reduction. [facility] Kate Cordova, VAL Upcoming Appointments DIRECTOR OF DANCE - Recent and Past Visits Recent Visits Date Type Provider Dept 05/06/20 Office Visit Emily Shane APN, CNP [facility] Showing recent visits within past 460 days with a meds authorizing provider and meeting all other requirements Future Appointments No visits were found meeting these conditions. Showing future appointments within next 90 days with a meds authorizing provider and meeting all other requirements WINDER documented in this encounter Plan of Treatment [...] documented as of this encounter Care Teams Mat Roller Relationship Specialty Start Date End Date Emily Shane APRN, [place] [address] [place] [address] PCP - General Advanced Practice Nurse 05/06/20 3 Provider, None [place] PCP - General 08/15/24 Steven Peck Jr., MD Consulting Physician Neurology 04/09/15 Anahi Park MD Anesthesiology 04/09/15 documented as of this encounter
[2025-05-10 09:41] LABS: Hematocrit 39.7 % (37.0-47.0); Hemoglobin 13.5 g/dL (12.0-15.0); Immature Granulocyte Percent A 0.2 % (0-0.5); Lymphocytes Absolute Auto 2.55 K/mm3 (0.9-3.2); Mean Corpuscular HGB Conc 34.0 g/dl (32-36); Mean Corpuscular Hemoglobin 32.0 pg (26-34); Mean Corpuscular Volume 94.1 fl (80-100); Nucleated Red Blood Cells Absolute Auto 0.000 K/mm3 (0.0-0.012); Nucleated Red Blood Cells Perc 0.0 % (0.0-0.2); Platelet Count Result 294 k/mm3 (150-375); Red Blood Count 4.22 M/mm3 (4.2-5.4); White Blood Count 8.2 K/mm3 (4.5-10.0)
[2025-05-10 10:10] LABS: Alanine Aminotransferase 14 U/L (6-35); Albumin Level 4.3 g/dL (3.5-5.1); Alkaline Phosphatase 54 U/L (38-126); Anion Gap 8 mmol/L (4-12); Aspartate Amino Transferase 25 U/L (14-36); Bilirubin,Total 0.5 mg/dL (0.2-1.3); Blood Urea Nitrogen 8 mg/dL (7-17); Calcium 10.4 mg/dL (8.4-10.2); Carbon Dioxide 25 mmol/L (22-30); Chloride 104 mmol/L (98-107); Cholesterol 181 mg/dL (0-200); Estimated Glomerular Filt Rate > 60; Glucose 103 mg/dL (65-110); HDL Direct 73 mg/dL; Potassium 5.0 mmol/L (3.4-5.0); Sodium 137 mmol/L (137-145); Total Protein 6.9 g/dL (6.3-8.2); Triglycerides 103 mg/dL (<150)
[2025-05-10 10:23] LABS: Hemoglobin A1C 5.6 % (<5.7)
[2025-05-10 10:59] LABS: Thyroid Stimulating Hormone Reflex 1.300 uIU/mL (0.465-4.68)
== END 2025-05-10 09:11 | disposition home or self-care (01) ==
PROVIDERS: PCP Family Medicine; Visit Provider Family Medicine
DX: E78.2 Mixed hyperlipidemia (principal); Z00.00 Encounter for general adult medical examination without abnormal findings; R53.83 Other fatigue; I10 Essential (primary) hypertension; E11.9 Type 2 diabetes mellitus without complications; E55.9 Vitamin D deficiency, unspecified
CPT/HCPCS: 36415; 80053; 80061; 82306; 83036; 84443; 85025

== ENCOUNTER 2025-08-16 13:18 | Outpatient (CLI) | payer MEDICARE, SELFPAY ==
--- OUTSIDE RECORDS SUMMARY | 2024-10-22 11:30 | XMS_ITS ---
Author Organization [facility] [place] ([address]) Address [address] [place] [address] Care Team Providers Care Ordnance Truck Installation Supervisor Name Role Phone Shazia King Primary Care Provider Sundar Huntley Unavailable [phone] Derik Jackman [phone] REASON FOR VISIT Patch Test Read 3 Social History Sex Assigned At : Social History Observation Description Sex Assigned At Female Encounters Encounter Location Date Provider Diagnosis [facility] [address] [place] [address] 10/22/2024 Derik Jackman Plan Of Treatment No Information Progress Notes * HECTOR Shayy HaleDOB: [birth year] (74 yo F)Acc No.[id number]:10/22/2024 Progress Note Patient: Greta LEIGHn Geoffrey Provider: Matthew Jackman PA-C :1950 A ge:74 Y S ex:Female Date:10/22/2024 [facility] [id number] Pcp:Shazia King Subjective: * Chief Complaints: * 1 . Patch Test Read 3. * Medical History: Objective: * Vitals: Assessment: Plan: * Treatment: * Billing Information: * Visit Code: * Procedure Codes: * Electronic signature of Hernandez Jackman PA-C on 08/16/2025 at 01:28 PM FIELD CROP TECHNICAL OFFICER Sign off status: Pending * Provider: Matthew Jackman PA-C Date: 0 10/22/2024 Generated for Joleen bustillos/Ema/Court on: 10/16/2024 01:28 PM FIELD CROP TECHNICAL OFFICER
--- OUTSIDE RECORDS SUMMARY | 2024-11-19 11:30 | XMS_ITS ---
Author Organization [facility] [place] ([address]) Address [address] [place] [address] Care Team Providers Care Research Rn Spec Name Role Phone FernandoShazia Primary Care Provider Sundar Huntley Unavailable [phone] Derik Jackman Unavailable [phone] REASON FOR VISIT Ongoing diffuse rash for the past year with additional hives occurring daily since. October. Following with derm with bx taken; one showing hypersensitivity, the other showing superficial dermatitis Medications Medication SIG (Take, Route, Frequency, Duration) Notes Start Date End Date Status Cetirizine HCl 10 MG 2 tablets Orally Tw ice a day; Duration: 30 days Active Montelukast Sodium 10 MG TAKE 1 TABLET B Y MOUTH DAILY; Duration: 30 Active Triamcinolone Acetonide 55 MCG/ACT 1 spray in each nostril Nasally Twice a day; Duration: 30 days Active Montelukast Sodium 10 MG 1 tablet Orally Once a day; Duration: 30 days Active Famotidine 20 MG 1 tablet Orally Twic e a day; Duration: 30 days Active oxyBUTYnin Chloride ER 10 MG Oral; Duration: 90 Days Active Lisinopril 20 MG Oral; Duration: 90 Days Active HYDROcodone-Acetaminophen 7.5-325 MG Oral; Duration: 30 Days Active Meclizine HCl 25 MG TAKE 1 TABLET BY THREE TIMES DAILY NEEDED FOR DIZZINESS Oral; Duration: 10 Days Not-Taking Mounjaro 10 MG/0.5ML Subcutaneous; Duration: 28 Days Active Pregabalin 100 MG 1 capsule Orally Onc e a day Active Progesterone 100 MG 1 capsule at bedtime Orally Once a day Active buPROPion HCl 100 MG 1 tablet Orally Twi ce a day Active cycloSPORINE 0.05 % 1 drop into affected eye Ophthalmic Twice a day Active DULoxetine HCl 60 MG 1 capsule Orally On ce a day Active SUMAtriptan Succinate 100 MG 1 tablet as needed, may take second dose at least 2 hours after first dose up to 2 tablets per day as needed Orally Once a day Active Social History Sex Assigned At : Social History Observation Description Sex Assigned At Female Encounters Encounter Location Date Provider Diagnosis [facility] [address] [facility] [address] [place] [address] 11/19/2024 Derik Jackman Idiopathic urticaria L50.1 and Rash and other nonspecific skin eruption R21 Assessments Encounter Date Diagnosis (ICD Code) Assessment Notes Treatment Notes Treatment Clinical Notes Section Notes 11/19/2024 Idiopathic urticaria (ICD-10 - L50.1) As above. Noted elevated CU index though pictures and timeline of rash not c/w urticaria. Cosider trial of Xolair to assess benefit 11/19/2024 Rash and other nonspecific skin eruption (ICD-10 - R21) Recurrent waxing and waning rash since June 2023 leading into recurrent hives occurring diffusely at a daily rate. Lesions are noted to be itchy and occur and occur throughout the day. No noted triggers at this time. She is seen at [facility] dermatology noting she was not sure what is causing it. She has had 2 bxs, once showing a hypersensitivity, the other showing superficial dermatitis. No relation noted with foods. No regular NSAID use. She feels these hives will occur for approx 24 - 72 hours. There is generally bruising that occurs after the lesions resolve. She follows with Dr. King, reporting extensive work-up reporting normal CBC and thyroid work-up. Currently, on high-dose antihistamines with mild benefit though rashes still continues. She does feels they worsen after returning after visit friend in [place] for days at a time. She does have pictures to review today. CU work-up obtained since last visit with mildly elevated CU index, otherwise without clear signed of thyroid involvement or elevated tryptase level. At this point, I feel it is best to rule out contact dermatitis before considering additional medications such as Xolair. She is aware of holding topcial steroids one week before patch testing 11/19/2024 Other Plan Of Treatment Medication Medication Name Sig Start Date Stop Date Notes Cetirizine HCl 10 MG 2 tablets Orally Tw ice a day; Duration: 30 days Triamcinolone Acetonide 55 MCG/ACT 1 spray in each nostril Nasally Twice a day; Duration: 30 days Montelukast Sodium 10 MG 1 tablet Orally Once a day; Duration: 30 days Famotidine 20 MG 1 tablet Orally Twic e a day; Duration: 30 days Treatment Notes Assessment Notes Idiopathic urticaria As above. Noted acosta vated CU index though pictures and timeline of rash not c/w urticaria. Cosider trial of Xolair to assess benefit Rash and other nonspecific skin eruption Recurrent waxing and waning rash since June 2023 leading into recurrent hives occurring diffusely at a daily rate. Lesions are noted to be itchy and occur and occur throughout the day. No noted triggers at this time. She is seen at [facility] dermatology noting she was not sure what is causing it. She has had 2 bxs, once showing a hypersensitivity, the other showing superficial dermatitis. No relation noted with foods. No regular NSAID use. She feels these hives will occur for approx 24 - 72 hours. There is generally bruising that occurs after the lesions resolve. She follows with Dr. King, reporting extensive work-up reporting normal CBC and thyroid work-up. Currently, on high-dose antihistamines with mild benefit though rashes still continues. She does feels they worsen after returning after visit friend in [place] for days at a time. She does have pictures to review today. CU work-up obtained since last visit with mildly elevated CU index, otherwise without clear signed of thyroid involvement or elevated tryptase level. At this point, I feel it is best to rule out contact dermatitis before considering additional medications such as Xolair. She is aware of holding topcial steroids one week before patch testing Next Appt Details Follow Up: 4 Weeks, Reason: Evaluation and Management,Patch Testing: Placement Progress Notes * Shayy STEARNSDOB: [birth year] (74 yo F)Acc No.[id number]:11/19/2024 Progress Notes Patient: Greta LEIGHn Geoffrey Provider: Matthew Jackman PA-C :1950 A ge:74 Y S ex:Female Date:11/19/2024 Address:[address], [id number] Pcp:Shazia King Subjective: * Chief Complaints: * 1 . Ongoing diffuse rash for the past year with additional hives occurring daily since. October. Following with derm with bx taken; one showing hypersensitivity, the other showing superficial dermatitis. * HPI: * Introduction: HPI: Bernie Stearns, a 73 y/o female with history of HTN and recurrent rash returning for interval evaluation and management. She is alone for today's visit. She reports ongoing rash since June 2023 leading into recurrent hives occurring diffusely at a daily rate. Lesions are noted to be itchy and occur and occur throughout the day. No noted triggers at this time. She did start Manjaro around this time, but will have continued hives throughout the week. She is seen at [facility] dermatology noting she was not sure what is causing it. She has had 2 bxs, once showing a hypersensitivity, the other showing superficial dermatitis. No relation noted with foods. No regular NSAID use. No alcohol. Of note, she does take hydrocodone on a daily basis for a neck injury for approx 15 years. She denies relation to hot showers. She does feel this worsens were clothes touch. She feels these hives will occur for approx 24 - 72 hours. There is generally bruising that occurs after the hive resolve. She follows with Dr. King, reporting extensive work-up reporting normal CBC and thyroid work-up. Currently, on high-dose antihistamines with mild benefit though rashes still continues, She sully feels they worsen after returning after visit friend in [place] for days at a time. She does have pictures to review today. CU work-up obtained since last visit with mildly elevated CU index, otherwise without clear signed of thyroid involvement or elevated tryptase level. T marija, she reports no fevers, chills, night sweats or other constitutional symptoms. * ROS: A LLERGY: Positive p er the HPI and history, otherwise unremarkable.? S PECIAL SENSES: Positve for n one. C ONSTITUTIONAL: weight loss Y es. P ositive for n one. ? E NT: Positive p er the HPI and history, otherwise unremarkable.? R ESPIRATORY: Positive p er the HPI and history, otherwise unremakable.? O PHTHALMOLOGY: Positive for p er the HPI and history, otherwise unremarkable. E NDOCRINOLOGY: weight loss Y es. P ositive for n one. ? C ARDIOLOGY: Positive for n one. G ASTROENTEROLOGY: constipation Y es. P ositive for n one. ? U ROLOGY: Positive for n one. D ERMATOLOGY: rash Y es. l umps Y es. d ry or sensitive skin?Yes. h ting (urticaria) Y es. P ositive for p er the HPI and history, otherwise unremakable. N EUROLOGY: headache Y es. P ositive for n one. ? H EMATOLOGY/LYMPH: Positive for n one. M USCULOSKELETAL: joint pain Y es. j oint stiffness Y es. P ositive for n one. P SYCHOLOGY: Positive for n one. A ll other review of systems per the HPI and history, otherwise unremarkable. * Medical History: * Medications: T aking Cetirizine HCl 10 MG Tablet 2 tablets Orally Twice a day , Taking Famotidine 20 MG Tablet 1 tablet Orally Twice a day , Taking Triamcinolone Acetonide 55 MCG/ACT Aerosol 1 spray in each nostril Nasally Twice a day , Taking SUMAtriptan Succinate 100 MG Tablet 1 tablet as needed, may take second dose at least 2 hours after first dose up to 2 tablets per day as needed Orally Once a day , Taking Progesterone 100 MG Capsule 1 capsule at bedtime Orally Once a day , Taking Pregabalin 100 MG Capsule 1 capsule Orally Once a day , Taking DULoxetine HCl 60 MG Capsule Delayed Release Particles 1 capsule Orally Once a day , Taking cycloSPORINE 0.05 % Emulsion 1 drop into affected eye Ophthalmic Twice a day , Taking buPROPion HCl 100 MG Tablet 1 tablet Orally Twice a day , Taking Mounjaro 10 MG/0.5ML Solution Auto-injector Subcutaneous , Taking HYDROcodone-Acetaminophen 7.5-325 MG Tablet Oral , Taking Lisinopril 20 MG Tablet Oral , Taking oxyBUTYnin Chloride ER 10 MG Tablet Extended Release 24 Hour Oral , Taking Montelukast Sodium 10 MG Tablet TAKE 1 TABLET BY MOUTH DAILY , Not-Taking/PRN Meclizine HCl 25 MG Tablet TAKE 1 TABLET BY MOUTH THREE TIMES DAILY NEEDED FOR DIZZINESS Oral Objective: * Vitals: * Examination: G eneral examination: General appearance: p leasant, well-developed, well-nourished. HEENT: p upils equal, round, and reactive to light and accommodation, conjunctiva are normal bilaterally, no tenderness to palpation of the sinuses, TM's without evidence of acute infection, turbinates 2+ swollen and pale inferiorly bilaterally, clear rhinorrhea is present, no polyps noted, no septal perforation, posterior oropharynx is normal, no erythema on pharyngeal wall, no exudates, no tongue swelling, and uvula is midline. Oral cavity: n ormal, no lesions. Neck, thyroid : s upple, non-tender, no anterior cervical lymphadenopathy. Breasts : n ot performed. Heart: R RR, S1-S2, no murmurs, no rubs, no gallops. Lungs: c lear to auscultation and percussion in all lung phillips, no wheezes or crackles. Abdomen: s oft, NT/ND, normal active bowel sounds. Neurologic exam: u nremarkable. Skin: D iffusely dry skin to the shoulder with pinpoint lesions across arms, areas of ecchymosis noted across arms, no urticaria, angioedema. Peripheral pulses: n ormal (2+) bilaterally. Back: n ormal. Extremities: n ormal ROM, no clubbing, no cyanosis, no edema. Genitalia: n ot performed. Assessment: * Assessment: 1. R wade and other nonspecific skin eruption - R21 (Primary) 2 . I diopathic urticaria - L50.1 Plan: * Treatment: 2. I diopathic urticaria Continue Cetirizine HCl Tablet, 10 MG, 2 tablets, Orally, Twice a day, 30 days, 120 Tablet, Refills 0; C ontinue Famotidine Tablet, 20 MG, 1 tablet, Orally, Twice a day, 30 days, 60 Tablet, Refills 0; R efill Montelukast Sodium Tablet, 10 MG, 1 tablet, Orally, Once a day, 30 days, 30, Refills 2. Notes: As above. Noted elevated CU index though pictures and timeline of rash not c/w urticaria. Cosider trial of Xolair to assess benefit * Procedure Codes: G 8427 DOC MEDS VERIFIED W/PT OR RE * Preventive Medicine: Counseling: M edication instruction: W atch for side effects of prescribed medications, Nasal steroid/antihistamine instruction: avoid septum. E ducation: G ENERAL EDUCATION: Our staff spent an additional 30 minutes in direct contact with the patient educating them on their current diagnoses and proper treatment and prevention of symptoms and the proper use of medications. P atient education material sent to portal? Y es B P Management: FIRST HYPERTENSIVE BP READING FOLLOW-UP PLAN: F ollow-up 1 month * Follow Up: 4 Weeks (Reason: Evaluation and Management,Patch Testing: Placement) * Billing Information: * Visit Code: 89104 Office Visit, Est Pt., Level 4. Modifiers: 25 * Procedure Codes: G8427 DOC MEDS VERIFIED W/PT OR RE. * Electronic signature of Hernandez Jackman PA-C on 08/16/2025 at 01:28 PM TANK CAR REPAIRER Sign off status: Pending * Provider: Matthew Jackman PA-C Date: 0 11/19/2024 Generated for Joleen bustillos/Ema/Court on: 1 10/16/2024 01:28 PM TANK CAR REPAIRER History and Physical Notes * HPI (History of Present Illness) Category Sub-Category Detail Notes Category Not es *Introduction HPI: Shayy Stearns, a 73 y/o female with history of HTN and recurrent rash returning for interval evaluation and management. She is alone for today's visit. She reports ongoing rash since June 2023 leading into recurrent hives occurring diffusely at a daily rate. Lesions are noted to be itchy and occur and occur throughout the day. No noted triggers at this time. She did start Manjaro around this time, but will have continued hives throughout the week. She is seen at [facility] dermatology noting she was not sure what is causing it. She has had 2 bxs, once showing a hypersensitivity, the other showing superficial dermatitis. No relation noted with foods. No regular NSAID use. No alcohol. Of note, she does take hydrocodone on a daily basis for a neck injury for approx 15 years. She denies relation to hot showers. She does feel this worsens were clothes touch. She feels these hives will occur for approx 24 - 72 hours. There is generally bruising that occurs after the hive resolve. She follows with Dr. King, reporting extensive work-up reporting normal CBC and thyroid work-up. Currently, on high-dose antihistamines with mild benefit though rashes still continues, She sully feels they worsen after returning after visit friend in [place] for days at a time. She does have pictures to review today. CU work-up obtained since last visit with mildly elevated CU index, otherwise without clear signed of thyroid involvement or elevated tryptase level. Today, she reports no fevers, chills, night sweats or other constitutional symptoms Examination Category Sub-Category Detail Notes Category Not es General examination HEENT: pupils equal , round, and reactive to light and accommodation, conjunctiva are normal bilaterally, no tenderness to palpation of the sinuses, TM's without evidence of acute infection, turbinates 2+ swollen and pale inferiorly bilaterally, clear rhinorrhea is present, no polyps noted, no septal perforation, posterior oropharynx is normal, no erythema on pharyngeal wall, no exudates, no tongue swelling, and uvula is midline Neck, thyroid : supple, non-tender, no anterior cervical lymphadenopathy Heart: RRR, S1-S2, no murmu rs, no rubs, no gallops Lungs: clear to auscultatio n and percussion in all lung phillips, no wheezes or crackles Abdomen: soft, NT/ND, normal active bowel sounds Extremities: normal ROM, no clubb ing, no cyanosis, no edema General appearance: pleasant, well-devel oped, well-nourished Skin: Diffusely dry skin t o the shoulder with pinpoint lesions across arms, areas of ecchymosis noted across arms, no urticaria, angioedema Neurologic exam: unremarkable Oral cavity: normal, no lesions Breasts : not performed Peripheral pulses: normal (2+) bilatera lly Back: normal Genitalia: not performed
--- OUTSIDE RECORDS SUMMARY | 2024-11-21 11:30 | XMS_ITS ---
Author Organization [facility] [place] ([address]) Address [address] [place] [address] Care Team Providers Care Construction Stonemason Name Role Phone Shazia King Primary Care Provider Sundar Huntley Unavailable [phone] Keke Mcneil Unavailable [phone] REASON FOR VISIT Patch Test Read 1 Social History Sex Assigned At : Social History Observation Description Sex Assigned At Female Encounters Encounter Location Date Provider Diagnosis [facility] [address] [place] [address] 11/21/2024 Keke Mcneil Plan Of Treatment No Information Progress Notes * Shayy STEARNSDOB: [birth year] (74 yo F)Acc No.[id number]:11/21/2024 Progress Notes Patient: Jordana LEIGHnatalia Hale Provider: ROLANDO Marie :1950 A ge:74 Y S ex:Female Date:11/21/2024 [facility] [facility] [id number] Pcp:Shazia King Subjective: * Chief Complaints: * 1 . Patch Test Read 1. * Medical History: Objective: * Vitals: Assessment: Plan: * Treatment: * Billing Information: * Visit Code: * Procedure Codes: * Electronic signature of COSMO MortensenBC on 08/16/2025 at 01:29 PM RECEIVER/LABORER Sign off status: Pending * Provider: CRAIG Marie-ANTIONETTE Date: 0 11/21/2024 Generated for Joleen bustillos/Ema/Court on: 1 10/16/2024 01:29 PM RECEIVER/LABORER
--- OUTSIDE RECORDS SUMMARY | 2024-11-22 11:30 | XMS_ITS ---
Author Organization [facility] [place] ([address]) Address [address] [place] [address] Care Team Providers Care Artificial Leather Calender Operator Name Role Phone Shazia King Primary Care Provider Sundar Huntley Unavailable [phone] Keke Mcneil Unavailable [phone] REASON FOR VISIT Patch Test Read 2 Social History Sex Assigned At : Social History Observation Description Sex Assigned At Female Encounters Encounter Location Date Provider Diagnosis [facility] [address] [place] [address] 11/22/2024 Keke Mcneil Plan Of Treatment No Information Progress Notes * Shayy STEARNSDOB: [birth year] (74 yo F)Acc No.[id number]:11/22/2024 Progress Notes Patient: Jordana LEIGHnatalia Hale Provider: ROLANDO Marie :1950 A ge:74 Y S ex:Female Date:11/22/2024 [facility] [facility] [id number] Pcp:Shazia King Subjective: * Chief Complaints: * 1 . Patch Test Read 2. * Medical History: Objective: * Vitals: Assessment: Plan: * Treatment: * Billing Information: * Visit Code: * Procedure Codes: * Electronic signature of COSMO MortensenBC on 08/16/2025 at 01:29 PM SOLAR ENERGY ADVISOR Sign off status: Pending * Provider: CRAIG Marie-ANTIONETTE Date: 0 11/22/2024 Generated for Joleen bustillos/Ema/Court on: 1 10/16/2024 01:29 PM SOLAR ENERGY ADVISOR
--- OUTSIDE RECORDS SUMMARY | 2024-11-26 11:30 | XMS_ITS ---
Author Organization [facility] [place] ([address]) Address [address] [place] [address] Care Team Providers Care Volunteer Services Coordinator Name Role Phone Shazia King Primary Care Provider UnavailSundar Robledo Unavailable [phone] Derik Jackman Unavailable [phone] REASON FOR VISIT Patch Test Read 3 Medications Medication SIG (Take, Route, Frequency, Duration) Notes Start Date End Date Status Progesterone 100 MG 1 capsule at bedtime Orally Once a day Active Pregabalin 100 MG 1 capsule Orally Onc e a day Active SUMAtriptan Succinate 100 MG 1 tablet as needed, may take second dose at least 2 hours after first dose up to 2 tablets per day as needed Orally Once a day Active Montelukast Sodium 10 MG TAKE 1 TABLET B Y MOUTH DAILY; Duration: 30 Active DULoxetine HCl 60 MG 1 capsule Orally On a day Active Famotidine 20 MG 1 tablet Orally Twic e a day; Duration: 30 days Active Montelukast Sodium 10 MG 1 tablet Orally Once a day; Duration: 30 days Active Montelukast Sodium 10 MG TAKE 1 TABLET B Y MOUTH DAILY; Duration: 30 Active Cetirizine HCl 10 MG 2 tablets Orally Tw ice a day; Duration: 30 days Active Triamcinolone Acetonide 55 MCG/ACT 1 spray in each nostril Nasally Twice a day; Duration: 30 days Active Mounjaro 10 MG/0.5ML Subcutaneous; Duration: 28 Days Active Lisinopril 20 MG Oral; Duration: 90 Days Active oxyBUTYnin Chloride ER 10 MG Oral; Duration: 90 Days Active Meclizine HCl 25 MG TAKE 1 TABLET BY RACHEL THREE TIMES DAILY NEEDED FOR DIZZINESS Oral; Duration: 10 Days Not-Taking HYDROcodone-Acetaminophen 7.5-325 MG Oral; Duration: 30 Days Active buPROPion HCl 100 MG 1 tablet Orally Twi ce a day Active cycloSPORINE 0.05 % 1 drop into affected eye Ophthalmic Twice a day Active Social History Sex Assigned At : Social History Observation Description Sex Assigned At Female Encounters Encounter Location Date Provider Diagnosis [facility] [address] [place] [address] 11/26/2024 Derik Jackman Plan Of Treatment No Information Progress Notes * Shayy STEARNSDOB: [birth year] (74 yo F)Acc No.[id number]:11/26/2024 Progress Note Patient: Shayy LEIGH Provider: Matthew Jackman PA-C :1950 A ge:74 Y S ex:Female Date:11/26/2024 Address:[address] [place] [address], [facility] [id number] Pcp:Shazia King Subjective: * Chief Complaints: * 1 . Patch Test Read 3. * Medical History: * Medications: T aking SUMAtriptan Succinate 100 MG Tablet 1 tablet [...] TAKE 1 TABLET BY MOUTH DAILY , Taking Cetirizine HCl 10 MG Tablet 2 tablets Orally Twice a day , Taking Famotidine 20 MG Tablet 1 tablet Orally Twice a day , Taking Montelukast Sodium 10 MG Tablet 1 tablet Orally Once a day , Taking Triamcinolone Acetonide 55 MCG/ACT Aerosol 1 spray in each nostril Nasally Twice a day , Taking Montelukast Sodium 10 MG Tablet TAKE 1 TABLET BY MOUTH DAILY , Not-Taking/PRN Meclizine HCl 25 MG Tablet TAKE 1 TABLET BY MOUTH THREE TIMES DAILY NEEDED FOR DIZZINESS Oral Objective: * Vitals: Assessment: Plan: * Treatment: * Billing Information: * Visit Code: * Procedure Codes: * Electronic signature of Hernandez Jackman PA-C on 08/16/2025 at 01:29 PM CLINICAL PHYSICIAN ASSISTANT Sign off status: Pending * Provider: Matthew Jackman PA-C Date: 0 11/26/2024 Generated for Joleen bustillos/Ema/Court on: 10/16/2024 01:29 PM CLINICAL PHYSICIAN ASSISTANT
--- OUTSIDE RECORDS SUMMARY | 2025-02-05 11:30 | XMS_ITS ---
Author Organization [facility] [place] ([address]) Address [address] [place] [address] Care Team Providers Care Telecommunications Sales Representative Name Role Phone Shazia King Primary Care Provider Sundar Huntley Unavailable [phone] Suly Fontanez [phone] REASON FOR VISIT Rash follow-up Social History Sex Assigned At : Social History Observation Description Sex Assigned At Female Encounters Encounter Location Date Provider Diagnosis [facility] [address] [place] [address] 02/05/2025 Suly Fontanez Plan Of Treatment No Information Progress Notes * Shayy STEARNSDOB: [birth year] (74 yo F)Acc No.[id number]:02/05/2025 Progress Notes Patient: Jordana LEIGHnatalia Hale Provider: JAZZMINE Ricci :1950 A ge:74 Y S ex:Female Date:02/05/2025 [address] [id number] Pcp:Shazia King Subjective: * Chief Complaints: * 1 . Rash follow-up. * Medical History: Objective: * Vitals: Assessment: Plan: * Treatment: * Billing Information: * Visit Code: * Procedure Codes: * Electronic signature of Suly Fontanez DNP, FNP-C on 08/16/2025 at 01:29 PM PARLIAMENTARY ARCHIVIST Sign off status: Pending * Provider: JAZZMINE Ricci Date: 0 02/05/2025 Generated for Joleen bustillos/Ema/Court on: 1 10/16/2024 01:29 PM PARLIAMENTARY ARCHIVIST
--- NOTE | ~2025-08-16 | XR_ITS ---
EXAMINATION: XR shoulder LT min 2V, 08/16/2025 13:30 SPRING ASSEMBLER SUPERVISOR HISTORY: M25.512 - Pain in left shoulder COMPARISON: No comparisons available. Findings: No acute fracture or malalignment. No significant degenerative changes. Soft tissues unremarkable. Impression: No acute fracture or malalignment. Reviewed, dictated and finalized at location P. NG ASSEMBLER SUPERVISOR Impression: No acute fracture or malalignment.
--- OUTSIDE RECORDS SUMMARY | 2025-08-16 13:29 | XMS_ITS | Encounter Summary ---
Author Organization [facility] Address [address] [place] [address] Phone Care Team Providers Care Materials Planner/Production Planner Name Role Phone Cisco Gomez MD, Steven Dickens Unavailable Unav ailable Anahi Park MD Unavailable Emily Shane APRN, CNP Primary Care Provid er Provider, None Primary Care Provider Unavailabl e Reason for Visit * Reason Comments Medication Refill Encounter Details Date Type Department Care Team (Late st Contact Info) Description 04/19/2023 Refill [facility] - Internal Medicine - [facility] [address] [place] [address] Emily Shane APRN, CUSTOMER SERVICE ASSOCIATE [address] [place] [address] Medication Refill Social History Tobacco [...] on file 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
--- OUTSIDE RECORDS SUMMARY | 2025-08-16 13:29 | XMS_ITS | Encounter Summary ---
Author Organization [facility] Address [address] [place] [address] Phone Care Team Providers Care Director Automotive Name Role Phone Cisco Gomez MD, Steven Dickens Unavailable Unav ailable Anahi Park MD Unavailable [phone] Emily Shane APRN, CNP Primary Care Provid er Provider, None Primary Care Provider Unavailabl e Reason for Visit * Reason Comments Medication Refill Encounter Details Date Type Department Care Team (Late st Contact Info) Description 06/02/2021 Refill [facility] [address] [place], [place] [id number] Emily Shane APRN, EXECUTIVE SERVICES ADMINISTRATOR [address] [place], [place] [address] Medication Refill Social History Tobacco Use Types [...] on file 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 Gender Identity Not on file Sexual Orientation [...] Outpatient Visits 6 months ago Urinary frequency [facility] Emily Shane APN, EXECUTIVE SERVICES ADMINISTRATOR 1 year ago Essential hypertension [facility] Emily Shane APN, EXECUTIVE SERVICES ADMINISTRATOR 1 year ago Essential hypertension [facility] Malaika Mitchell APN, EXECUTIVE SERVICES ADMINISTRATOR 2 years ago Essential hypertension [facility] Emily Shane APN, EXECUTIVE SERVICES ADMINISTRATOR 2 years ago DDD (degenerative disc disease), cervical- chronic neck pain- on Lyrica BID. She statesdoes seem to keep her pain controlled. She states has seen pain specialist. S/p neck surgery. Sees Dr. Park. [facility] Emily Shane APN, EXECUTIVE SERVICES ADMINISTRATOR Upcoming Appointments Future Appointments In 1 week [facility] Internal Med [facility] Internal Medicine [facility] sofie TRIAGE CLINICIAN - Recent and Past Visits Recent Visits Date Type Provider Dept 11/19/20 Office Visit Emily Shane APN, CNP [facility] 05/06/20 Office Visit Emily Shane APN, CNP [facility] Showing recent visits within past 460 days [...] documented as of this encounter Care Teams Director Automotive Relationship Specialty Start Date End Date Emily Shane APRN, EXECUTIVE SERVICES ADMINISTRATOR [address] [place] [address] PCP - General Advanced Practice Nurse 05/06/20 3 Provider, None [place] PCP - General 08/15/24 Steven Peck Jr., MD Consulting Physician Neurology 04/09/15 Anahi Park MD Anesthesiology 04/09/15 documented as of this encounter
--- OUTSIDE RECORDS SUMMARY | 2025-08-16 13:29 | XMS_ITS | Encounter Summary ---
Author Organization [facility] Address [address] [place] [address] Phone Care Team Providers Care Preparation Supervisor Name Role Phone Cisco Gomez MD, Steven Dickens Unavailable Unav ailable Anahi Park MD Unavailable Emily Shane APRN, CNP Primary Care Provid er Provider, None Primary Care Provider Unavailabl e Reason for Visit * Reason Comments Medication Refill Encounter Details Date Type Department Care Team (Late st Contact Info) Description 05/20/2022 Refill [facility] - Internal Medicine - 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 Gender Identity Not on file Sexual Orientation [...] Provider Dept 10/21/21 Telemedicine Emily Shane APRN, [place] [facility] 11/19/20 Office Visit Emily Shane APRN, [place] [facility] Showing recent visits within past 730 days [...] documented as of this encounter Care Teams Preparation Supervisor Relationship Specialty Start Date End Date Emily Shane APRN, [place]MI[place] OR TIMBER YARD WORKER [address] [place] [address] PCP - General Advanced Practice Nurse 05/06/20 3 Provider, None [place] PCP - General 08/15/24 Steven Peck Jr., MD Consulting Physician Neurology 04/09/15 Anahi Park MD Anesthesiology 04/09/15 documented as of this encounter
--- OUTSIDE RECORDS SUMMARY | 2025-08-16 13:29 | XMS_ITS | Encounter Summary ---
Author Organization [facility] Address [address] [place] [address] Phone Care Team Providers Care Auto Vinyl Top Installer Name Role Phone Cisco Gomez MD, Steven Dickens Unavailable Unav ailable Anahi Park MD Unavailable [phone] Emily Shane APRN, CNP Primary Care Provid er Provider, None Primary Care Provider Unavailabl e Reason for Visit * Reason Comments Medication Refill Encounter Details Date Type Department Care Team (Late st Contact Info) Description 12/14/2021 Refill [facility] - Internal Medicine - 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 No / Unsure 12/03/2021 11:15 AM PREPARATION PLANT REPAIRER documented as of this encounter Miscellaneous Notes * Telephone Encounter - Anya Joyce RN - 12/14/2021 11:20 AM CDT Requested too soon documented in this encounter Plan of Treatment Not on file documented as of this encounter Visit Diagnoses Not on filedocumented in this encounter Additional Health Concerns Assessment Noted Time PHQ-9 Depression Total Score: 0 05/06/20 11:00 AM CDT documented as of this encounter Care Teams Auto Vinyl Top Installer Relationship Specialty Start Date End Date Emily Shane APRN, SENIOR NETWORK ARCHITECT [address] [place] [address] PCP - General Advanced Practice Nurse 05/06/20 3 Provider, None [place] PCP - General 08/15/24 Steven Peck Jr., MD Consulting Physician Neurology 04/09/15 Anahi Pakr MD Anesthesiology 04/09/15 documented as of this encounter
--- OUTSIDE RECORDS SUMMARY | 2025-08-16 13:29 | XMS_ITS | Encounter Summary ---
Author Organization [facility] Address [address] [place] [address] Phone Care Team Providers Care Water Resources Business Segment Leader Name Role Phone Cisco Gomez MD, Steven Dickens Unavailable Unav ailable Anahi Park MD Unavailable Emily Shane APRN, CNP Primary Care Provid er Provider, None Primary Care Provider Unavailabl e Reason for Visit * Reason Comments Medication Refill Encounter Details Date Type Department Care Team (Late st Contact Info) Description 05/21/2021 Refill [facility] - Internal Medicine - [facility] [address] [place] [address] Emily Shane APRN, MID TEACHER [address] [place] [address] Medication Refill Social History Tobacco [...] on file 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 Gender Identity Not on file Sexual Orientation [...] Dept 11/19/20 Office Visit Emily Shane APN, MID TEACHER [facility] Showing recent visits within past 365 days and meeting all other requirements Future Appointments Date Type Provider Dept 06/15/21 Appointment Lab, Ca Internal Med [facility] Showing future appointments within next 90 days [...] documented as of this encounter Care Teams Water Resources Business Segment Leader Relationship Specialty Start Date End Date Emily Shane APRN, MID TEACHER [address] [place] [address] PCP - General Advanced Practice Nurse 05/06/20 3 Provider, None [place] PCP - General 08/15/24 Steven Peck Jr., MD Consulting Physician Neurology 04/09/15 Anahi Park MD Anesthesiology 04/09/15 documented as of this encounter
--- OUTSIDE RECORDS SUMMARY | 2025-08-16 13:29 | XMS_ITS | Clinical Summary ---
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 Gender Identity Not on file Sexual Orientation [...] 167.6 cm (5' 6) 10/21/2021 10:02 AM MARKETING COMMUNICATIONS COORDINATOR Body Mass Index 28.57 06/18/2021 7:03 PM CDT Plan of Treatment Health Maintenance Due Date Last Done Comments Hepatitis C Virus (HCV) Screening 1950 Cologuard 1997 DEXA Bone Density 02/28/2012 02/27/2010 Medicare Initial AWV G0438 07/27/2018 Zoster Immunization (2 of 2) 06/16/2020 04/21/2020 Immunochemical Fecal Occult Blood 09/11/2022 09/11/2021, 03/25/2010 Mammogram 03/15/2023 03/15/2022, 12/26, 01/07/2020, Additional history exists Td Immunization Every 10 Years (Adults With 1 Tdap) 04/10/2023 04/10/2013 Influenza Immunization (#1) 05/27/202506/27, 07/26/2023, 07/01/2022, Additional history exists SARS-COV-2 Immunization ( season) 2025 07/16/2024, 07/04/2022, 02/13/2022, Additional history exists Colonoscopy 06/11/2025 06/11/2015, 05/27, [...] this topic Medical Devices Implanted Type Area Control Analyst Device Identifier Shelf Expiration Date Model / [...] Procedure Name Priority Date/Time Associated Diagnosis Comments BRITNEY SCREENING BILATERAL DIGITAL W CAD W JAGDEEP Routine 03/15/2022 11:12 AM CDT Screening mammogram, encounter for STOOL, OCCULT BLOOD, SCREEN 09/11/2021 12:00 AM MARKETING COMMUNICATIONS COORDINATOR HM COLONOSCOPY Routine 06/11/2015 BRITNEY BONE DENSITOMETRY AXIAL SKELETON Routine 02/27/2010 8:16 AM CDT Menopause from Last 3 Months or Most Recently Relevant to Health Maintenance Results * [facility] SCREENING BILATERAL DIGITAL W CAD W JAGDEEP [...] imaging evaluation Narrative 03/15/2022 4:32 PM CDT [facility] SCREENING BILATERAL DIGITAL W CAD W JAGDEEP [...] Procedure Note Eric Clifton MD - 03/15/2022 [facility] SCREENING BILATERAL DIGITAL W CAD W JAGDEEP [...] Incomplete:Needs additional imaging evaluation us Emily Shane APRN, WRAPPER HAND IMG MAMMO ORDERABLES Final Result * STOOL, OCCULT BLOOD, SCREEN FOR CA (09/11/2021 12:00 AM MARKETING COMMUNICATIONS COORDINATOR) 09/11/2021 us Not On File Provider URINE [...] Comments 02/02/2010 3:50 PM yes, Rachel Foy [facility] Care Teams Structural Biologist Relationship Specialty Start Date End Date Provider, None [place] PCP - General 08/15/24 Steven Peck Jr., MD Consulting Physician Neurology 04/09/15 Anahi Park MD Anesthesiology 04/09/15
--- OUTSIDE RECORDS SUMMARY | 2025-08-16 13:29 | XMS_ITS | Encounter Summary ---
Author Organization [facility] Address [address] [place] [address] Phone Care Team Providers Care Robotics Systems Engineer Name Role Phone Cisco Gomez MD, Steven Dickens Unavailable Unav ailable Anahi Park MD Unavailable [phone] Emily Shane APRN, CNP Primary Care Provid er Provider, None Primary Care Provider Unavailabl e Reason for Visit * Reason Comments Medication Refill Encounter Details Date Type Department Care Team (Late st Contact Info) Description 01/18/2022 Refill [facility] - Internal Medicine - [facility] [address] [place] [address] Emily Shane APRN, SCRAP METAL COLLECTOR [address] [place] [address] Medication Refill Social History Tobacco [...] on file 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 Gender Identity Not on file Sexual Orientation [...] 10/21/21 Telemedicine Emily Shane APRN, CNP [facility] 11/19/20 Office Visit Emily Shane APRN, CNP [facility] 05/06/20 Office Visit Emily Shane APRN, CNP [facility] Showing recent visits within past 730 [...] documented as of this encounter Care Teams Robotics Systems Engineer Relationship Specialty Start Date End Date Emily Shane APRN, [place] [address] [place] [address] PCP - General Advanced Practice Nurse 05/06/20 3 Provider, None [place] PCP - General 08/15/24 Steven Peck Jr., MD Consulting Physician Neurology 04/09/15 Anahi Park MD Anesthesiology 04/09/15 documented as of this encounter
--- OUTSIDE RECORDS SUMMARY | 2025-08-16 13:29 | XMS_ITS | Encounter Summary ---
Author Organization [facility] Address [address] [place] [address] Phone Care Team Providers Care Farm Demonstrator Name Role Phone Cisco Gomez MD, Steven Dickens Unavailable Unav ailable Anahi Park MD Unavailable [phone] Provider, None Primary Care Provider Unavailabl e Reason for Visit * Reason Comments Medication Refill Encounter Details Date Type Department Care Team (Late st Contact Info) Description 08/10/2023 Refill [facility] - Internal Medicine - [facility] [address] [place] [address] Emily Shane, IZABELLA, HARDWARE TECHNICIAN [address] [address], [place] [address] Medication Refill Social History Tobacco Use Types [...] on file 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
--- OUTSIDE RECORDS SUMMARY | 2025-08-16 13:29 | XMS_ITS | Encounter Summary ---
Author Organization [facility] Address [address] [place] [address] Phone Care Team Providers Care Glass Worker Name Role Phone Cisco Gomez MD, Steven Dickens Unavailable Unav ailable Anahi Park MD Unavailable Emily Shane APRN, CNP Primary Care Provid er Provider, None Primary Care Provider Unavailabl e Reason for Visit * Reason Comments Medication Refill Encounter Details Date Type Department Care Team (Late st Contact Info) Description 09/18/2021 Refill [facility] [address], [place] [id number] Emily Shane APRN, FAST FOOD SERVER [address], [place] [address] Medication Refill Social History Tobacco Use Types [...] on file Legal 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 Gender Identity Not on file Sexual Orientation Not on file Occupation Industry Job Start Date Job End Date Not on file Not on file Not on file Not on file documented as of this encounter Miscellaneous Notes * Telephone Encounter - Anya Joyce RN - 09/21/2021 2:09 PM SALES REPRESENTATIVE BUSINESS COURSES Medication failed the protocol, provider to review [...] Office Visit Emily Shane APRN, CNP [facility] 05/06/20 Office Visit Emily Shane APRN, CNP [facility] Showing recent visits within past 730 days and meeting all other requirements Future Appointments No visits were found meeting these conditions. Showing future appointments within next 90 days and meeting all other requirements Passed - Number of active Serotonergic medications less than 3 S REPRESENTATIVE BUSINESS COURSES documented in this encounter Plan of Treatment [...] documented as of this encounter Care Teams Glass Worker Relationship Specialty Start Date End Date Emily Shane APRN, FAST FOOD SERVER [address] [place] [address] PCP - General Advanced Practice Nurse 05/06/20 3 Provider, None [place] PCP - General 08/15/24 Steven Peck Jr., MD Consulting Physician Neurology 04/09/15 Anahi Park MD Anesthesiology 04/09/15 documented as of this encounter
--- OUTSIDE RECORDS SUMMARY | 2025-08-16 13:29 | XMS_ITS | Encounter Summary ---
Author Organization [facility] Address [address] [place] [address] Phone Care Team Providers Care Radiology Transcriptionist Name Role Phone Cisco Gomez MD, Steven Dickens Unavailable Unav ailable Anahi Park MD Unavailable Emily Shane APRN, RISK MGR Primary Care Provid er Provider, None Primary Care Provider Unavailabl e Reason for Visit * Reason Comments Medication Refill Encounter Details Date Type Department Care Team (Late st Contact Info) Description 12/15/2020 Refill [facility] [address], [place] [id number] Lydia Marsh APRN, RISK MGR [address], [place] [address] Medication Refill Social History Tobacco Use Types [...] on file 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 Gender Identity Not on file Sexual [...] Miscellaneous Notes * Telephone Encounter - Chanda JimenezGABRIELA - 12/15/2020 10:57 AM CDT Per nursing [...] Outpatient Visits 3 weeks ago Urinary frequency [facility] Emily Shane APN, CNP 7 months ago Essential hypertension [facility] Emily Shane APN, RISK MGR 1 year ago Essential hypertension [facility] Malaika Mitchell APN, RISK MGR 1 year ago Essential hypertension [facility] Emily Shane APN, RISK MGR 1 year ago DDD (degenerative disc disease), cervical- chronic neck pain- on Lyrica BID. She states does seem to keep her pain controlled. She states has seen pain specialist. S/p neck surgery. Sees Dr. Park. 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 Recent Visits Date Type Provider Dept 11/19/20 Office Visit Emily Shane APN, CNP [facility] 05/06/20 Office Visit Emily Shane APN, CNP [facility] Showing recent visits within [...] documented as of this encounter Care Teams Radiology Transcriptionist Relationship Specialty Start Date End Date Emily Shaen, PUBLISHER ASSISTANT, RISK MGR [address] [place] [address] PCP - General Advanced Practice Nurse 05/06/20 3 Provider, None [place] PCP - General 08/15/24 Steven Peck Jr., MD Consulting Physician Neurology 04/09/15 Anahi Park MD Anesthesiology 04/09/15 documented as of this encounter
--- OUTSIDE RECORDS SUMMARY | 2025-08-16 13:29 | XMS_ITS | Encounter Summary ---
Author Organization [facility] Address [address] [place] [address] Phone Care Team Providers Care Brand Communications Manager Name Role Phone Cisco Gomez MD, Steven Dickens Unavailable Unav ailable Anahi Park MD Unavailable [phone] Emily Shane APRN, [place] Primary Care Provid er Provider, None Primary Care Provider Unavailabl e Reason for Visit * Reason Comments Medication Refill Encounter Details Date Type Department Care Team (Late st Contact Info) Description 09/14/2020 Refill [facility] [address], [place] [id number] Emily Shane APRN, TANK ERECTOR [address], [place] [address] Medication Refill Social History Tobacco Use Types [...] on file Legal Sex Female 2:57 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 Per nursing clinical judgement, [...] Outpatient Visits 4 months ago Essential hypertension [facility] Emily Shane APN, [place] 1 year ago Essential hypertension [facility] Malaika Mitchell APN, TANK ERECTOR 1 year ago Essential hypertension [facility] Emily Shane APN, CNP 1 year ago DDD (degenerative disc disease), cervical- chronic neck pain- on Lyrica BID. She states does seem to keep her pain controlled. She states has seen pain specialist. S/p neck surgery. Sees Dr. Park. [facility] Emily Shane APN, CNP 2 years ago Obstructive sleep apnea- does not use a machine. just manages by postion and weight reduction. [facility] Kate Cordova, VAL Upcoming Appointments NON PROFIT DIRECTOR - Recent and Past Visits Recent Visits Date Type Provider Dept 05/06/20 Office Visit Emily Shane APN, CNP [facility] Showing recent visits within past 460 days with a meds authorizing provider and meeting all other requirements Future Appointments No visits were found meeting these conditions. Showing future appointments within next 90 days with a meds authorizing provider and meeting all other requirements F MEDIA OFFICER documented in this encounter Plan of Treatment [...] as of this encounter Care Teams Brand Communications Manager Relationship Specialty Start Date End Date Emily Shane APRN, [place] [address] [place] [address] PCP - General Advanced Practice Nurse 05/06/20 3 Provider, None [place] PCP - General 08/15/24 Steven Peck Jr., MD Consulting Physician Neurology 04/09/15 Anahi Park MD Anesthesiology 04/09/15 documented as of this encounter
--- OUTSIDE RECORDS SUMMARY | 2025-08-16 13:29 | XMS_ITS | Encounter Summary ---
Author Organization [facility] Address [address] [place] [address] Phone Care Team Providers Care Peoplesoft Financials Name Role Phone Cisco Gomez MD, Steven Dickens Unavailable Unav ailable Anahi Park MD Unavailable [phone] Provider, None Primary Care Provider Unavailabl e Reason for Visit * Reason Comments Medication Refill Encounter Details Date Type Department Care Team (Late st Contact Info) Description 05/04/2023 Refill [facility] - Internal Medicine - [facility][1] [address] [place] [address] Emily Shane, IZABELLA, COLLARETTE SEPARATOR [address], [place] [address] Medication Refill Social History Tobacco Use Types [...] on file Legal Sex Female 2:57 AM 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
--- OUTSIDE RECORDS SUMMARY | 2025-08-16 13:30 | XMS_ITS | Patient Health Record ---
Author Organization [facility] [employer] [facility] ([address] Address [address] [place] [address] Care Team Providers Care Drilling And Production Superintendent Name Role Phone FernandoShazia Primary Care Provider UnavailSundar Robledo Unavailable [phone] Derik Jackman Unavailable [phone] Keke Mcneil Unavailable [phone] Suly Fontanez Unavailable [phone] Allergies Allergen (clinical drug ingredient) Drug/Non Drug Allergy documented on EMR Reaction Allergy Type Onset Date Status Darvocet (uncoded) Nausea Allergy A ctive Sulfamethoxazole (uncoded) Hives Allergy Active trimethoprim Trimethoprim (uncoded) Hives Allergy Active Reason For Referral No Information Medications Medication SIG (Take, Route, Frequency, Duration) Notes Start Date End Date Status cycloSPORINE 0.05 % 1 drop into affected eye Ophthalmic Twice a day Active DULoxetine HCl 60 MG 1 capsule Orally On ce a day Active Pregabalin 100 MG 1 [...] Vaccine Route Administration Date Status Comme nts NOC Tdap Unknown 04/10/2013 Administered Portal Infor [employer] NOC Prevnar 13 Unknown 07/09/2019 Administered Portal I nformation Influenza Unknown 07/26/2023 Administered Portal [employer]for [employer] Social History Tobacco Use: Social History Observation Description Date Details (start date - stop date) Never Smoker NA - NA Sex Assigned At : Social History Observation Description Sex Assigned At Female Smoking Smart Form: Question Answer Notes Are you a: never smoker Additional Findings:Tobacco Non-User Non-smoker for baptism reasons Problems Problem Type SNOMED Code ICD Code Onset Dates Problem Status W/U Status Risk Notes Problem Idiopathic urticaria (44634795) Idiopathic urticaria (L50.1) Active confirmed Problem Chronic migraine without aura, non-refractory (disorder) (79470841253269 0) Migraine without aura, not intractable, without status migrainosus (G43.009) Active confirmed Problem Chronic pain syndrome (326943895) Chronic pain syndrome (G89.4) Active confirmed Problem Eruption of skin (969547943) Rash and other nonspecific skin eruption (R21) Active confirmed Vital Signs Respiratory Rate 17 /min 12/13/2024 Oximetry 97 % 12/17/2024 Blood pressure diastolic 79 mm Hg 12/17/2024 Height 65 in 12/17/2024 Blood pressure systolic 131 mm Hg 12/17/2024 Weight 148.8 lbs 12/17/2024 BMI 24.76 kg/m2 12/17/2024 Encounters Encounter Location Date Provider Diagnosis [address] [address] 12/10/2024 Derik Jackman Idiopathic urticaria L50.1 and Rash and other nonspecific skin eruption R21 [address] [address] 12/12/2024 Keke Usselmann Idiopathic urticaria L50.1 and Rash and other nonspecific skin eruption R21 [address] [address] 12/13/2024 Keke Usselmann Idiopathic urticaria L50.1 and Rash and other nonspecific skin eruption [address] [address] 12/17/2024 Derik Jackman Idiopathic urticaria L50.1 and Rash and other nonspecific skin eruption [address] [address] 01/04/2025 Derik Jackman Assessments Encounter Date Diagnosis (ICD [...] at this time. She is seen at [facility] dermatology noting she was not sure what [...] worsen after returning after visit friend in [place] for days at a time. CU work-up obtained since last visit with mildly elevated CU index, otherwise without clear signed of thyroid involvement or elevated tryptase level. At this point,we felt best to rule out contact dermatitis aspect though presention today with celar picking occuring almost concerning for PN. Patch testing was initiated today using [employer] patch testing delivery system (most common [...] at this time. She is seen at [facility] dermatology noting she was not sure what [...] worsen after returning after visit friend in [place] for days at a time. CU work-up [...] at this time. She is seen at [facility] dermatology noting she was not sure what [...] worsen after returning after visit friend in [place] for days at a time. CU work-up obtained since last visit with mildly elevated CU index, otherwise without clear signed of thyroid involvement or elevated tryptase level. At this point,we felt best to rule out contact dermatitis aspect though presention today with celar picking occuring almost concerning for PN. - Patch testing with [employer] patch testing delivery system (most common topical [...] at this time. She is seen at [facility] dermatology noting she was not sure what [...] worsen after returning after visit friend in [place] for days at a time. CU work-up obtained since last visit with mildly elevated CU index, otherwise without clear signed of thyroid involvement or elevated tryptase level. At this point,we felt best to rule out contact dermatitis aspect though presention today with celar picking occuring almost concerning for PN. - Patch testing with [employer] patch testing delivery system (most common topical [...] suspicious for underlying PN. Advised evaluation at [facility] for 2nd option. Consider Dupixent - Return in 2 months for E&M 12/12/2024 Other 12/10/2024 Other 10/01/2024 Other 10/15/2024 Other 12/13/2024 Other 12/17/2024 Other 11/19/2024 Other Plan Of Treatment No Information Insurance Providers Payer Name Payer Address Payer Phone Subscriber Number Group Number Insured Name Patient Relationship to Insured Coverage Start Date Coverage End Date [employer] [address] [place] [address] [id number] Shayy Stearns Self - patient is the [...]
== END 2025-08-16 13:19 | disposition home or self-care (01) ==
DX: M25.512 Pain in left shoulder (principal)
CPT/HCPCS: 73030